=== PATIENT | female | born 1940 | race Caucasian/White ===

== ENCOUNTER 2019-12-30 14:51 | Outpatient (REF) | payer MEDICARE, SELFPAY ==
[2019-12-30 16:16] LABS: Estimated Average Glucose 100 mg/dL; Hemoglobin A1c % 5.1 %
[2019-12-30 16:36] LABS: Alanine Aminotransferase 18 U/L (0-31); Albumin Level 4.2 g/dL (3.5-5.0); Alkaline Phosphatase 69 U/L (39-117); Anion Gap 12 (12-20); Aspartate Amino Transferase 20 U/L (5-31); Bilirubin Total 0.5 mg/dL (0.0-1.0); Blood Urea Nitrogen 18 mg/dL (9-16); Calcium 9.3 mg/dL (8.4-10.2); Carbon Dioxide 26 mmol/L (22-29); Chloride 101 mmol/L (96-108); Estimated Glomerular Filt Rate > 60; Glucose Random 99 mg/dL (60-115); Potassium 4.4 mmol/l (3.3-5.1); Rheumatoid Factor < 15.0 IU/mL (<15.0); Sodium 135 mmol/L (135-145); Total Protein 7.3 g/dL (6.5-8.0)
[2019-12-30 17:42] LABS: Erythrocyte Sedimentation Rate 45 MM/HR (0-20)
[2020-01-02 18:02] LABS: Anti Nuclear Antibody Screen NEGATIVE (NEGATIVE)
[2020-01-03 08:19] LABS: ANA Additional Testing NOT INDICATED
== END 2019-12-30 14:52 | disposition home or self-care (01) ==
LOC: HO.LAB 14:51
PROVIDERS: PCP Internal Medicine; Visit Provider Internal Medicine
DX: R73.01 Impaired fasting glucose (principal); R70.0 Elevated erythrocyte sedimentation rate; J45.909 Unspecified asthma, uncomplicated; E78.00 Pure hypercholesterolemia, unspecified; E66.9 Obesity, unspecified; M17.9 Osteoarthritis of knee, unspecified
CPT/HCPCS: 36415; 80053; 83036; 85652; 86038; 86039; 86431

== ENCOUNTER 2020-09-04 13:19 | Outpatient (REF) | payer MEDICARE, SELFPAY ==
--- NOTE | ~2020-09-04 | MM_ITS ---
EXAMINATION: MM SCREENING DIGITAL BREAST TOMOSYNTHESIS, BILATERAL CLINICAL INFORMATION: Screening. Asymptomatic. The lifetime risk of breast cancer based on the Tyrer-Cuzick Model is 1.8%. COMPARISON: Mammography: February 14, 2019 and studies dating back to May 30, 2013 TECHNIQUE: Digital breast tomosynthesis is performed in both the craniocaudal and mediolateral oblique views along with computer-aided detection (CAD). Synthesized 2D images are generated from the tomosynthesis. Additional right breast exaggerated craniocaudal view performed. FINDINGS: The breasts are heterogeneously dense, which may obscure small masses (ACR BI-RADS breast composition Category c). There are no significant masses, abnormal calcifications, or other abnormalities. MM/MM tomosynthesis screening BI IMPRESSION: There are no significant changes from prior study. ASSESSMENT: BI-RADS 1: Negative RECOMMENDATION: Routine annual mammography screening. This patient's information was entered into a reminder system with a target due date for their next mammogram.
== END 2020-09-04 13:20 | disposition home or self-care (01) ==
LOC: HO.MAMMO 13:19
PROVIDERS: PCP Internal Medicine; Visit Provider Internal Medicine
DX: Z12.31 Encounter for screening mammogram for malignant neoplasm of breast (principal)
CPT/HCPCS: 77063; 77067

== ENCOUNTER 2020-12-26 10:25 | Outpatient (REF) | payer MEDICARE, SELFPAY ==
[2020-12-26 10:49] LABS: MANUAL DIFF FLAG NO
[2020-12-26 11:04] LABS: Basophils Absolute Auto 0.1 X10*3/uL (0.0-0.2); Basophils Percent Auto 1.3 % (0-2); Eosinophils Absolute Auto 0.5 X10*3/uL (0.0-0.4); Eosinophils Percent Auto 8.3 % (0-4); Hematocrit 39.7 % (37-47); Hemoglobin 13.2 g/dl (12.0-16.0); Imm Gran Abs Auto 0.02 X10*3/uL (0.00-0.03); Imm Gran Pct Auto 0.4 % (0.0-0.4); Lymphocytes Absolute Auto 1.7 X10*3/uL (1.2-4.9); Lymphocytes Percent Auto 30.1 % (20-40); Mean Corpuscular HGB Conc 33.2 g/dl (31.0-35.0); Mean Corpuscular Hemoglobin 30.6 pg (27.0-33.0); Mean Corpuscular Volume 91.9 fL (80-98); Mean Platelet Volume 9.3 fL (9.4-12.3); Monocytes Absolute Auto 0.6 X10*3/uL (0.1-1.2); Monocytes Percent Auto 11.1 % (2-11); Neutrophils Absolute Auto 2.7 X10*3/uL (2.0-8.3); Neutrophils Percent Auto 48.8 % (45-73); Platelet Count 311 X10*3/uL (160-400); Red Blood Count 4.32 X10*6/uL (4.20-5.50); Red Cell Distribution Width 12.8 % (11.0-16.0); White Blood Count 5.5 X10*3/uL (4.8-10.8)
[2020-12-26 11:31] LABS: Estimated Average Glucose 100 mg/dL; Hemoglobin A1c % 5.1 %
[2020-12-26 11:33] LABS: Alanine Aminotransferase 31 U/L (0-31); Albumin Level 4.3 g/dL (3.5-5.0); Alkaline Phosphatase 147 U/L (39-117); Anion Gap 13 (12-20); Aspartate Amino Transferase 26 U/L (5-31); Blood Urea Nitrogen 12 mg/dL (9-16); Calcium 9.6 mg/dL (8.4-10.2); Carbon Dioxide 26 mmol/L (22-29); Chloride 104 mmol/L (96-108); Cholesterol 216 mg/dL; Estimated Glomerular Filt Rate > 60; Glucose Random 96 mg/dL (60-115); HDL Cholesterol 63 mg/dL; LDL Cholesterol Calculated 138 mg/dl; Potassium 4.8 mmol/L (3.3-5.1); Sodium 138 mmol/L (135-145); Total Protein 7.2 g/dL (6.5-8.0); Triglycerides 75 mg/dL
[2020-12-26 11:48] LABS: Appearance Urine HAZY; Color Urine YELLOW; Glucose Urine UA NEG (NEG); Leukocyte Esterase Urine 1+ (NEG); Nitrite Urine POS (NEG); Urine Blood NEG (NEG); Urine Ketones NEG (NEG); Urine Protein NEG (NEG-TRACE)
[2020-12-26 11:56] LABS: Free T4 (Free Thyroxine) 1.03 ng/dL (0.71-1.85); Vitamin D 25-OH Total 43.5 ng/mL (>30)
[2020-12-26 11:57] LABS: Folate 18.8 ng/mL (> or = 4.0); Vitamin B12 791 pg/mL (200-900)
[2020-12-26 11:58] LABS: Bacteria Urine 2+ /LPF; RBC Urine 0 /HPF (0); Squamous Epithelial Cell Urine TRACE /LPF
== END 2020-12-26 10:26 | disposition home or self-care (01) ==
LOC: HO.LAB 10:25
PROVIDERS: PCP Internal Medicine; Visit Provider Internal Medicine
DX: R73.02 Impaired glucose tolerance (oral) (principal); E78.00 Pure hypercholesterolemia, unspecified; M85.80 Other specified disorders of bone density and structure, unspecified site
CPT/HCPCS: 36415; 80053; 80061; 81001; 82306; 82607; 82746; 83036; 84439; 84443; 85025

== ENCOUNTER 2021-01-11 13:52 | Outpatient (REF) | payer MEDICARE, SELFPAY ==
--- NOTE | ~2021-01-11 | MM_ITS ---
EXAMINATION: BONE DENSITOMETRY CLINICAL INDICATION: Osteopenia. COMPARISON: Previous BD dated 07/13/2018 and baseline BD dated 04/15/2007. TECHNIQUE: Using a [employer] DXA System (software version: 13.1) manufactured by [employer], dual-energy x-ray absorptiometry was performed of the lumbar spine and left hip. The images are of good technical quality. Summary results are attached. FINDINGS: AP SPINE L1-L4 (excluding L3): The data of L1-L4 has been changed to exclude the L3 vertebral body, because degenerative sclerosis at this level may cause overestimation of lumbar spine density. Current: BMD 1.070 g/cm2, Z-score 0.3, T-score -0.8, normal, 1.5% decrease from previous, 14.3% increase from baseline (<5% change is not significant). Prior: BMD 1.054 g/cm2. Baseline: BMD 0.936 g/cm2. LEFT FEMUR, NECK: Current: BMD 0.743 g/cm2, Z-score -0.4, T-score -2.1, osteopenia. Prior: BMD 0.748 g/cm2. Baseline: BMD 0.783 g/cm2. LEFT FEMUR, TOTAL: Current: BMD 0.739 g/cm2, Z-score -0.6, T-score -2.1, osteopenia, 0.4% increase from previous, 5.3% decrease from baseline (<5% change is not significant). Prior: BMD 0.736 g/cm2. Baseline: BMD 0.780 g/cm2. IDENTIFIED RISK FACTORS: Menopause, osteoporosis, height loss, hysterectomy, family history (parent hip fracture), bilateral oophorectomy. HISTORY OF FRACTURE: None listed. MEDICATIONS: Calcium, vitamin D. MM/XR DEXA axial skeleton IMPRESSION: 1. DIAGNOSIS: Osteopenia based on the lowest T-score value of -2.1 in the femur neck and total femur applying World Health Organization criteria. 2. 10-YEAR FRACTURE RISK PREDICTION, FRAX: Major osteoporotic fracture (clinical spine, forearm, hip or shoulder) 28.8%. Hip fracture 18.7%. 3. Treatment Recommendations: NOF guidelines recommend consideration for treatment in postmenopausal women and men age 50 and older presenting with the following: -A hip or vertebral (clinical or morphometric) fracture. -T-score less than or equal to -2.5 at the femoral neck or spine after appropriate evaluation to exclude secondary causes. -Low bone mass at the hip or spine and a 10-year fracture probability by FRAX of greater than or equal to 3% for hip fracture or greater than or equal to 20% for major osteoporotic fracture based on the [place] adapted WHO algorithm. 4. Other Recommendations: All treatment decisions require clinical judgment and consideration of individual patient factors, including patient preferences, comorbidities, previous drug use, risk factors not captured in the FRAX model (e.g. frailty, falls, vitamin D deficiency, increased bone turnover, interval significant decline in bone density) and possible under or overestimation of fracture risk by FRAX. Additional medical evaluation for secondary cause of low bone mineral density may be appropriate. FUTURE SCAN RECOMMENDATION: People with diagnosed cases of osteoporosis or at high risk for fracture should have regular bone mineral density tests. For patients eligible for Medicare, routine testing is allowed once every 2 years. The testing frequency can be increased to one year for patients who have rapidly progressing disease, those who are receiving or discontinuing medical therapy to restore bone mass, or have additional risk factors.
[2021-01-11 15:08] LABS: Alanine Aminotransferase 16 U/L (0-31); Albumin Level 4.4 g/dL (3.5-5.0); Alkaline Phosphatase 133 U/L (39-117); Anion Gap 13 (12-20); Aspartate Amino Transferase 21 U/L (5-31); Bilirubin Total 0.6 mg/dL (0.0-1.0); Blood Urea Nitrogen 16 mg/dL (9-16); Calcium 9.2 mg/dL (8.4-10.2); Carbon Dioxide 24 mmol/L (22-29); Chloride 101 mmol/L (96-108); Cholesterol 212 mg/dL; Estimated Glomerular Filt Rate 50; Gamma Glutamyl Transpeptidase 18 U/L (7-33); Glucose Random 76 mg/dL (60-115); HDL Cholesterol 67 mg/dL; LDL Cholesterol Calculated 123 mg/dl; Potassium 4.3 mmol/L (3.3-5.1); Sodium 134 mmol/L (135-145); Total Protein 7.4 g/dL (6.5-8.0); Triglycerides 114 mg/dL
[2021-01-11 15:18] LABS: Appearance Urine CLEAR; Color Urine YELLOW; Glucose Urine UA NEG (NEG); Leukocyte Esterase Urine 1+ (NEG); Nitrite Urine NEG (NEG); Urine Blood NEG (NEG); Urine Ketones NEG (NEG); Urine Protein NEG (NEG-TRACE)
[2021-01-11 15:57] LABS: RBC Urine 0 /HPF (0); Renal Epithelial Cells Urine 2+ /LPF; Squamous Epithelial Cell Urine 2+ /LPF
[2021-01-15 15:32] LABS: 5' Nucleotidase 3 U/L (0-10)
[2021-01-17 22:06] LABS: Alk.Phos Iso. Macrohepatic 0 % (<=0); Alk.Phos Isoenzymes Bone 52 % (28-66); Alk.Phos Isoenzymes Intest 0 % (1-24); Alk.Phos Isoenzymes Liver 48 % (25-69); Alk.Phos Isoenzymes Placental 0 % (<=0); Alk.Phos Isoenzymes Total 126 U/L (37-153)
== END 2021-01-11 13:53 | disposition home or self-care (01) ==
LOC: HO.MAMMO 13:52
PROVIDERS: PCP Internal Medicine; Visit Provider Internal Medicine
DX: Z13.820 Encounter for screening for osteoporosis (principal); Z78.0 Asymptomatic menopausal state; M85.80 Other specified disorders of bone density and structure, unspecified site; R73.02 Impaired glucose tolerance (oral); R74.8 Abnormal levels of other serum enzymes; E78.00 Pure hypercholesterolemia, unspecified
CPT/HCPCS: 36415; 77080; 80053; 80061; 81001; 82977; 83915; 84080

== ENCOUNTER 2021-08-21 13:51 | Outpatient (REF) | payer MEDICARE, SELFPAY ==
[2021-08-21 15:29] LABS: Appearance Urine CLEAR; Color Urine YELLOW; Glucose Urine UA NEG (NEG); Leukocyte Esterase Urine 2+ (NEG); Nitrite Urine POS (NEG); Specific Gravity - Urine 1.015 (1.005-1.025); Urine Blood NEG (NEG); Urine Ketones NEG (NEG); Urine Protein NEG (NEG-TRACE)
[2021-08-21 15:49] LABS: Bacteria Urine 3+ /LPF; Renal Epithelial Cells Urine TRACE /LPF
[2021-08-21 15:50] LABS: Squamous Epithelial Cell Urine 1+ /LPF
== END 2021-08-21 13:52 | disposition home or self-care (01) ==
LOC: HO.LAB 13:51
PROVIDERS: PCP Internal Medicine; Visit Provider Internal Medicine
DX: R35.0 Frequency of micturition (principal)
CPT/HCPCS: 81001; 81003

== ENCOUNTER 2021-11-25 14:42 | Outpatient (REF) | payer MEDICARE, SELFPAY ==
--- NOTE | ~2021-11-25 | XR_ITS ---
EXAMINATION: XR CERVICAL SPINE. XR HIP, RIGHT CLINICAL INFORMATION: Pain COMPARISON: None TECHNIQUE: 3 views of the cervical spine. AP and frog-lateral views of the right hip. FINDINGS: Cervical spine: Moderate degenerative disc disease at C4-C5 with minimal retrolisthesis, as well as C5-C6 and C6-C7. There is prominent facet arthropathy in the mid cervical spine, most severe on the left at C3-C4. No fracture. No prevertebral soft tissue swelling. Chronic ossifications superficial to the C6 spinous process, likely of the nuchal ligament. Right hip: No joint space narrowing. No fracture or focal osseous lesion. Mild enthesopathy. Vascular calcifications are noted. XR/XR cervical spine 3V IMPRESSION: Cervical spine: Moderate degenerative disc disease and moderate to severe facet arthropathy as detailed in the comments. No acute abnormality. Right hip: Unremarkable.
--- NOTE | ~2021-11-25 | XR_ITS ---
EXAMINATION: XR CERVICAL SPINE. XR HIP, RIGHT CLINICAL INFORMATION: Pain COMPARISON: None TECHNIQUE: 3 views of the cervical spine. AP and frog-lateral views of the right hip. FINDINGS: Cervical spine: Moderate degenerative disc disease at C4-C5 with minimal retrolisthesis, as well as C5-C6 and C6-C7. There is prominent facet arthropathy in the mid cervical spine, most severe on the left at C3-C4. No fracture. No prevertebral soft tissue swelling. Chronic ossifications superficial to the C6 spinous process, likely of the nuchal ligament. Right hip: No joint space narrowing. No fracture or focal osseous lesion. Mild enthesopathy. Vascular calcifications are noted. XR/XR hip RT min 2V IMPRESSION: Cervical spine: Moderate degenerative disc disease and moderate to severe facet arthropathy as detailed in the comments. No acute abnormality. Right hip: Unremarkable.
--- NOTE | ~2021-11-25 | MM_ITS ---
EXAMINATION: MM SCREENING DIGITAL BREAST TOMOSYNTHESIS, BILATERAL CLINICAL INFORMATION: Screening. Asymptomatic. The lifetime risk of breast cancer based on the Tyrer-Cuzick Model is 1%. COMPARISON: Mammography: 09/04/2020, 02/14/2019, 02/08/2018 TECHNIQUE: Digital breast tomosynthesis is performed in both the craniocaudal and mediolateral oblique views along with computer-aided detection (CAD). Synthesized 2D images are generated from the tomosynthesis. FINDINGS: There are scattered areas of fibroglandular density (ACR BI-RADS breast composition Category b). There are no significant masses, abnormal calcifications, or other abnormalities. Parenchymal pattern is similar to prior studies. No developing density or architectural abnormality. Again, there is a biopsy clip markers central mid right breast. Dermal lesion overlies mid right breast on tomography. There are also bilateral deodorant artifact overlying the high axilla. MM/MM tomosynthesis screening BI IMPRESSION: No mammographic evidence of malignancy. ASSESSMENT: BI-RADS 2: Benign RECOMMENDATION: Routine annual mammography screening. This patient's information was entered into a reminder system with a target due date for their next mammogram.
[2021-11-25 16:16] LABS: Appearance Urine Clear; Color Urine Yellow; Glucose Urine UA Negative (Negative); Leukocyte Esterase Urine Moderate (2+) (Negative); Nitrite Urine Negative (Negative); PH 5.5 (5.0-9.0); UMIC TRIGGER UACC YES; Urine Blood Negative (Negative); Urine Ketones Negative (Negative); Urine Protein Negative (Neg-Trace)
[2021-11-25 16:22] LABS: Bacteria Urine None Seen (None Seen); Hyaline Casts Urine 0-2 /LPF (0-2); RBC Urine 0-2 /HPF (0-2); UACC Culture Trigger YES
== END 2021-11-25 14:43 | disposition home or self-care (01) ==
LOC: HO.MAMMO 14:42
PROVIDERS: PCP Internal Medicine; Visit Provider Internal Medicine
DX: Z12.31 Encounter for screening mammogram for malignant neoplasm of breast (principal); M25.551 Pain in right hip; M54.2 Cervicalgia; R35.0 Frequency of micturition; E78.00 Pure hypercholesterolemia, unspecified
CPT/HCPCS: 72040; 73502; 77063; 77067; 81001; 81003; 87086

== ENCOUNTER 2021-12-31 10:26 | Outpatient (REF) | payer MEDICARE, SELFPAY ==
[2021-12-31 11:04] LABS: MANUAL DIFF FLAG NO
[2021-12-31 11:27] LABS: Basophils Absolute Auto 0.1 X10*3/uL (0.0-0.2); Basophils Percent Auto 1.4 % (0-2); Eosinophils Absolute Auto 0.2 X10*3/uL (0.0-0.4); Eosinophils Percent Auto 4.8 % (0-4); Hematocrit 40.7 % (37.0-47.0); Hemoglobin 13.2 g/dl (12.0-16.0); Imm Gran Abs Auto 0.02 X10*3/uL (0.00-0.03); Imm Gran Pct Auto 0.4 % (0.0-0.4); Lymphocytes Absolute Auto 1.5 X10*3/uL (1.2-4.9); Lymphocytes Percent Auto 29.4 % (20-40); Mean Corpuscular HGB Conc 32.4 g/dl (31.0-35.0); Mean Corpuscular Hemoglobin 30.4 pg (27.0-33.0); Mean Corpuscular Volume 93.8 fL (80.0-98.0); Mean Platelet Volume 10.1 fL (9.4-12.3); Monocytes Absolute Auto 0.6 X10*3/uL (0.1-1.2); Monocytes Percent Auto 11.5 % (2-11); Neutrophils Absolute Auto 2.6 x10*3/uL (2.0-8.3); Neutrophils Percent Auto 52.5 % (45-73); Platelet Count 278 X10*3/uL (160-400); Red Blood Count 4.34 X10*6/uL (4.20-5.50); Red Cell Distribution Width 13.1 % (11.0-16.0)
[2021-12-31 11:37] LABS: Estimated Average Glucose 103 mg/dL; Hemoglobin A1c % 5.2 %; Total Hemoglobin (HGBA1C) 3347.5132 umol/L
[2021-12-31 12:25] LABS: Free T4 (Free Thyroxine) 1.03 ng/dL (0.71-1.85); Vitamin D 25-OH Total 41.4 ng/mL (>30)
[2021-12-31 12:28] LABS: Alanine Aminotransferase 12 U/L (0-31); Albumin Level 4.2 g/dL (3.5-5.0); Alkaline Phosphatase 112 U/L (39-117); Anion Gap 13 (12-20); Aspartate Amino Transferase 17 U/L (5-31); Bilirubin Total 0.8 mg/dL (0.0-1.0); Blood Urea Nitrogen 20 mg/dL (9-16); Calcium 9.3 mg/dL (8.4-10.2); Carbon Dioxide 27 mmol/L (22-29); Chloride 103 mmol/L (96-108); Cholesterol 232 mg/dL; Estimated Glomerular Filt Rate > 60; Glucose Random 100 mg/dL (60-115); HDL Cholesterol 67 mg/dL; LDL Cholesterol Calculated 148 mg/dl; Potassium 4.3 mmol/L (3.3-5.1); Sodium 139 mmol/L (135-145); Triglycerides 85 mg/dL
[2021-12-31 12:49] LABS: Folate > 20.0 ng/mL (> or = 4.0); Vitamin B12 509 pg/mL (200-900)
[2021-12-31 12:54] LABS: Appearance Urine Clear; Color Urine Yellow; Glucose Urine UA Negative (Negative); Leukocyte Esterase Urine Negative (Negative); Nitrite Urine Negative (Negative); PH 6.5 (5.0-9.0); Urine Blood Negative (Negative); Urine Ketones Negative (Negative); Urine Protein Negative (Neg-Trace)
[2021-12-31 13:00] LABS: Bacteria Urine None Seen (None Seen); Hyaline Casts Urine 0-2 /LPF (0-2); RBC Urine 0-2 /HPF (0-2); Squamous Epithelial Cell Urine 0-2 /HPF (0-2); WBC Urine 0-5 /HPF (0-5)
== END 2021-12-31 10:27 | disposition home or self-care (01) ==
LOC: HO.LAB 10:26
PROVIDERS: PCP Internal Medicine; Visit Provider Internal Medicine
DX: E78.00 Pure hypercholesterolemia, unspecified (principal); R35.0 Frequency of micturition; R73.02 Impaired glucose tolerance (oral)
CPT/HCPCS: 36415; 80053; 80061; 81001; 81003; 82306; 82607; 82746; 83036; 84439; 84443; 85025

== ENCOUNTER → 2022-09-08 09:16 | Outpatient (BNV) | payer MEDICARE, SELFPAY | PROVIDERS: PCP Internal Medicine; Visit Provider Internal Medicine | DX: D47.2 Monoclonal gammopathy (principal) | CPT/HCPCS: 99203; 99214 ==

== ENCOUNTER → 2022-12-11 12:30 | Outpatient (BNV) | payer MEDICARE, SELFPAY | PROVIDERS: PCP Internal Medicine; Visit Provider Radiology Diagnostic Radiology | DX: Z12.31 Encounter for screening mammogram for malignant neoplasm of breast (principal) | CPT/HCPCS: 77063; 77067 ==

== ENCOUNTER 2022-12-11 12:46 | Outpatient (REF) | payer MEDICARE, SELFPAY ==
--- NOTE | ~2022-12-11 | MM_ITS ---
EXAMINATION: MM SCREENING DIGITAL BREAST TOMOSYNTHESIS, BILATERAL CLINICAL INFORMATION: Screening. Asymptomatic. COMPARISON: Mammography: This study is compared with prior exams dating back to 2018. TECHNIQUE: Digital breast tomosynthesis is performed in both the craniocaudal and mediolateral oblique views along with computer-aided detection (CAD). Synthesized 2D images are generated from the tomosynthesis. FINDINGS: The breasts are heterogeneously dense, which may obscure small masses (ACR BI-RADS breast composition Category c). There are no significant masses, abnormal calcifications, or other abnormalities. There is a tissue marker present in the right breast from prior benign percutaneous biopsy. There is a single, coarse, benign calcification also present in the right breast at its deep third. MM/MM tomosynthesis screening BI IMPRESSION: No mammographic evidence of malignancy. ASSESSMENT: BI-RADS BI-RADS 2 - Benign Findings RECOMMENDATION: Routine annual mammography screening. 1 year F/U This examination should not preclude the clinical evaluation of a suspicious palpable abnormality. This patient's information was entered into a reminder system with a target due date for their next mammogram.
== END 2022-12-11 12:47 | disposition home or self-care (01) ==
LOC: HO.MAMMO 12:46
PROVIDERS: PCP Internal Medicine; Visit Provider Internal Medicine
DX: Z12.31 Encounter for screening mammogram for malignant neoplasm of breast (principal)
CPT/HCPCS: 77063; 77067

== ENCOUNTER 2022-12-15 14:05 | Outpatient (REF) | payer MEDICARE, SELFPAY | END 2022-12-15 14:06 | disposition home or self-care (01) | LOC: HO.LAB 14:05 | PROVIDERS: PCP Internal Medicine; Visit Provider Internal Medicine | DX: E78.00 Pure hypercholesterolemia, unspecified (principal); R73.02 Impaired glucose tolerance (oral); M85.80 Other specified disorders of bone density and structure, unspecified site; E55.9 Vitamin D deficiency, unspecified | CPT/HCPCS: 36415; 80053; 80061; 82306; 82607; 82746; 83036; 84439; 84443; 85025 ==

== ENCOUNTER 2022-12-17 10:47 | Outpatient (AMB) | payer MEDICARE, SELFPAY ==
[2022-12-17 11:00] VITALS: BP 128/76; PULSE 71; O2SAT 98; BMI 34.5
--- NOTE | 2022-12-17 11:00 | A.OFFPC_ITS ---
Vital Signs 12/17/22 11:00 Height 5 ft 3 in Weight 88.451 kg BMI 34.5 BP 128/76 Blood Pressure Location Lt brachial Position Sitting Pulse 71 Pulse Source Pulse Oximeter Pulse Oximetry (%) 98 Oxygen Delivery Method Room Air Intake Visit Reasons: 6mth f/u Allergies penicillin V Allergy (Unknown, Verified 12/17/22 11:00) Unknown Medication List - Last Reconciled 12/17/22 by Darlene Magaña MD albuterol sulfate 90 mcg/actuation (ProAir HFA) 2 puffs inhalation Q6H PRN 90 days calcium carbonate-vitamin D3 600 mg-5 mcg (200 unit) (Calcium 600 + D(3)) 600 caps PO DAILY cetirizine (Zyrtec) 10 mg PO DAILY montelukast (Singulair) 10 mg PO BEDTIME 90 days multivitamin 1 tab PO DAILY turmeric root extract 500 mg PO DAILY Tobacco use date assessed: 07/31/22 Fall risk assessment: No Falls in past year Last assessed Fall Risk: 12/17/22 Dental Screening Dental Screen Date: 12/17/22 Did you have a dental visit in the last 12 months?: Yes Did you have a dental problem in the last 6 months where you did not have access to dental care?: No Was dental information given to patient?: Patient has dentist HPI 6mth f/u HPI Details 82-year-old obese female with impaired g lucose tolerance hypercholesterolemia asthma MGUS coming in for follow-up. Patient was last seen in July 2022. For the MGUS patient is seeing hematology oncology workup was recommended. This was in September 2019 [facility] Medical History (Updated 09/08/22 @ 11:29 by Blanca Wagner MD) Frequency of micturition Frequency of micturition Osteopenia Tubular adenoma of colon MGUS (monoclonal gammopathy of unknown significance) Peripheral vascular disease Knee osteoarthritis Impaired glucose tolerance Obesity (BMI 30-39.9) Hypercholesterolemia Asthma Surgical History (Updated 09/08/22 @ 09:29 by Blanca Wagner MD) History of sinus surgery S/P FINESSE-BSO Family History Father CVD (cardiovascular disease) Mother Stroke High cholesterol Maternal Aunt Ovarian cancer Pancreatic cancer Social History Housing: House Alcohol intake: current Alcohol intake frequency: a few times a month Patient Tobacco Use Status: Never used Tobacco e-Cigarette/Vaping Use: Never Used Second Hand Smoke Exposure: No Current occupational status: retired Cognitive needs: No Hearing needs: No Vision needs: Yes Questionnaire PHQ-9 Over the last 2 weeks, how often have you been bothered by any of the following problems? 1. Little interest or pleasure in doing things: not at all 2. Feeling down, depressed, or hopeless: not at all 3. Trouble falling or staying asleep, or sleeping too much: not at all 4. Feeling tired or having little energy: not at all 5. Poor appetite or overeating: not at all 6. Feeling bad about yourself - or that you are a failure or have let yourself or your family down: not at all 7. Trouble concentrating on things, such as reading the newspaper or watching television: not at all 8. Moving or speaking so slowly that other people could have noticed. Or the opposite - being so fidgety or restless that you have been moving around a lot more than usual: not at all 9. Thoughts that you would be better off or of hurting yourself in some way: not at all Total score: 0 Depression Screening Interpretation: Negative Depression Screening Done: Yes Source: Developed by Drs. Roberto Carlos Patel, Alejandro Padilla and colleagues, with an educational bogdan from [employer]. Thrive Questionnaire Date Thrive assessed: 07/31/22 AUDIT C Alcohol Use Questionnaire (AUDIT-C) 1. How often do you have a drink containing alcohol?: 2-4 times a month 2. How many drinks containing alcohol do you have on a typical day when you are drinking?: 1 or 2 3. How often do you have six or more drinks on one occasion?: Never Total Score: 2 MARY JO-7 AMB Questionnaire MARY JO-7 Date MARY JO - 7 assessed: 07/31/22 Source: Developed by Drs. Roberto Carlos Patel, Rosangela Alcantara, Alejandro Callejas and colleagues, with an educational bogdan from [employer]. Physical exam (Primary Care) Vital Signs: Last Vital Signs Pulse 71 12/17/22 11:00 BP 128/76 12/17/22 11:00 Pulse Ox 98 12/17/22 11:00 Oxygen Delivery Method Room Air 12/17/22 11:00 BMI result Body Mass Index 34.5 Tobacco/Smoking Status: Tobacco use Status Tobacco use date assessed 07/31/22 12/17/22 11:01 Patient Tobacco Use Status Never used Tobacco 12/17/22 11:01 e-Cigarette/Vaping Use Never Used 12/17/22 11:01 PHQ-9: PHQ-9 Score PHQ-9: Total score 0 12/17/22 12:07 Depression Screening Interpretation: Negative Thrive Assessment: Date of Thrive Assessment Date Thrive assessed 07/31/22 12/17/22 11:01 Const General: alert; No acute distress Eyes Conjunctivae: conjunctivae normal Resp Auscultation: clear to auscultation bilaterally Cardio Rate: regular rate Rhythm: regular rhythm GI Inspection: Yes normal to inspection Extrem General: Yes normal to inspection and No edema Office Procedures Flu Questionnaire Does the patient have a severe egg allergy?: No Does the patient have severe life threatening allergies?: No Does the patient have a fever or illness today?: No Has the patient ever had Guillain-[place] Syndrome?: No Has the patient ever had any past reaction to a flu shot?: No Immunizations flu vacc [id number] 6mos up(PF) 60 mcg(15 mcgx4)/0.5 mL IM syringe Performing Provider: Darlene Magaña MD Performing Location: [facility] Administered by: Snehal Peres CMA on 12/17/22 12:45 Dose Route Admin Location Dispensed Lot Number Expiration Date [facility] Rehabilitation Program Manager 0.5 mL IM Left Deltoid 0.5 mL [id number] 09/06/23 52701-488-47 [employer] VIS Given Date VIS Provided VIS Publication Date 12/17/22 Single Vaccine 20 Eligibility Eligibility Date Funding Source Not [facility] Eligible 12/17/22 Private Assessment and Plan Assessment & Plan (1) Hypercholesterolemia: Code(s): E78.00 - Pure hypercholesterolemia, unspecified Plan: Avoid fried foods, chicken skin, eggs, butter margarine, pastries and meat. Be it pork or beef they have a lot of cholesterol LDL goal of less than 130 and triglyceride of less than 150 (2) Asthma: Code(s): J45.909 - Unspecified asthma, uncomplicated Qualifiers: Asthma complication type: uncomplicated Asthma persistence: intermittent Asthma severity: mild Qualified Code(s): J45.20 - Mild intermittent asthma, uncomplicated Plan: Continue with inhaler as knee (3) Obesity (BMI 30-39.9): Code(s): E66.9 - Obesity, unspecified Plan: Diet and exercise (4) Impaired glucose tolerance: Code(s): R73.02 - Impaired glucose tolerance (oral) Plan: Decrease the amount of carbohydrate intake, pasta, bread, rice and potatoes are all sugar and that is aside from all the sweet stuff, remember that fruits are good but they are Sweet also. (5) MGUS (monoclonal gammopathy of unknown significance): Comment: Dr. Avelino MCRAE October 2011, IgM high October 2014, last blood work 09/2021 SPEP SFLC, UPEP Alk phos with fractionation Code(s): D47.2 - Monoclonal gammopathy Plan: Patient seeing hematology oncology and workup was recommended Orders: Orders XR DEXA axial skeleton Today M81.0 - Age-related osteoporosis without current pathological fracture, M85.80 - Other specified disorders of bone density and structure, unspecified site Influenza [id number] Immunization Today Z23 - Encounter for immunization Medications: Refilled montelukast (Singulair) 10 mg PO BEDTIME 90 tabs 3RF 90 days J45.20 - Mild intermittent asthma, uncomplicated Coding Level of Care Code Est Pt Level 4 (40696) Diagnoses Hypercholesterolemia E78.00 Mild intermittent asthma without complication J45.20 Asthma complication type: uncomplicated Asthma persistence: intermittent Asthma severity: mild Obesity (BMI 30-39.9) E66.9 Impaired glucose tolerance R73.02 MGUS (monoclonal gammopathy of unknown significance) D47.2
== END 2022-12-17 12:59 | disposition home or self-care (01) ==
PROVIDERS: Visit Provider Internal Medicine
DX: Z23 Encounter for immunization (principal); E78.00 Pure hypercholesterolemia, unspecified; J45.20 Mild intermittent asthma, uncomplicated; R73.02 Impaired glucose tolerance (oral); D47.2 Monoclonal gammopathy
CPT/HCPCS: 90471; 90686; 99214

== ENCOUNTER 2023-01-16 13:43 | Outpatient (REF) | payer MEDICARE, SELFPAY ==
--- NOTE | ~2023-01-16 | MM_ITS ---
EXAMINATION: BONE DENSITOMETRY CLINICAL INDICATION: Osteoporosis. COMPARISON: Previous BD dated 01/11/2021 and baseline BD dated 04/15/2007. TECHNIQUE: Using a [employer] DXA System (software version: 13.1) manufactured by [employer], dual-energy x-ray absorptiometry was performed of the lumbar spine and left hip. The images are of good technical quality. Summary results are attached. FINDINGS: LEFT FEMUR, NECK: Current: BMD 0.739 g/cm2, Z-score -0.3, T-score 2.1, osteopenia. Prior: BMD 0.743 g/cm2. Baseline: BMD 0.783 g/cm2. LEFT FEMUR, TOTAL: Current: BMD 0.737 g/cm2, Z-score -0.5, T-score -2.1, osteopenia, 0.3% decrease from previous, 5.5% decrease from baseline (<5% change is not significant). Prior: BMD 0.739 g/cm2. Baseline: BMD 0.780 g/cm2. AP SPINE L1-L3 (excluding L4): The data of L1-L4 has been changed to exclude the L4 vertebral body, because degenerative sclerosis at this level may cause overestimation of lumbar spine density. Current: BMD 1.029 g/cm2, Z-score 0.0, T-score -1.2, osteopenia, 9.3% decrease from previous, 0.7% increase from baseline (<5% change is not significant). Prior: BMD 1.134 g/cm2. Baseline: BMD 1.022 g/cm2. IDENTIFIED RISK FACTORS: Menopause, hysterectomy, family history (parent hip fracture), bilateral oophorectomy. HISTORY OF FRACTURE: None listed. MEDICATIONS: Calcium or multivitamin. Vitamin D. MM/XR DEXA axial skeleton IMPRESSION: 1. DIAGNOSIS: Osteopenia based on the lowest T-score value of -2.1 in the femur neck and total femur applying World Health Organization criteria. 2. 10-YEAR FRACTURE RISK PREDICTION, FRAX: Major osteoporotic fracture (clinical spine, forearm, hip or shoulder) 29.5%. Hip fracture 19.7%. 3. Treatment Recommendations: NOF guidelines recommend consideration for treatment in postmenopausal women and men age 50 and older presenting with the following: -A hip or vertebral (clinical or morphometric) fracture. -T-score less than or equal to -2.5 at the femoral neck or spine after appropriate evaluation to exclude secondary causes. -Low bone mass at the hip or spine and a 10-year fracture probability by FRAX of greater than or equal to 3% for hip fracture or greater than or equal to 20% for major osteoporotic fracture based on the [place] adapted WHO algorithm. 4. Other Recommendations: All treatment decisions require clinical judgment and consideration of individual patient factors, including patient preferences, comorbidities, previous drug use, risk factors not captured in the FRAX model (e.g. frailty, falls, vitamin D deficiency, increased bone turnover, interval significant decline in bone density) and possible under or overestimation of fracture risk by FRAX. Additional medical evaluation for secondary cause of low bone mineral density may be appropriate. FUTURE SCAN RECOMMENDATION: People with diagnosed cases of osteoporosis or at high risk for fracture should have regular bone mineral density tests. For patients eligible for Medicare, routine testing is allowed once every 2 years. The testing frequency can be increased to one year for patients who have rapidly progressing disease, those who are receiving or discontinuing medical therapy to restore bone mass, or have additional risk factors.
== END 2023-01-16 13:44 | disposition home or self-care (01) ==
LOC: HO.MAMMO 13:43
PROVIDERS: PCP Internal Medicine; Visit Provider Internal Medicine
DX: Z13.820 Encounter for screening for osteoporosis (principal); M81.0 Age-related osteoporosis without current pathological fracture; M85.80 Other specified disorders of bone density and structure, unspecified site; Z78.0 Asymptomatic menopausal state
CPT/HCPCS: 77080

== ENCOUNTER 2023-11-13 15:12 | Outpatient (AMB) | payer MEDICARE, SELFPAY ==
--- NOTE | 2023-11-13 15:21 | A.OFFPC_ITS ---
Vital Signs 11/13/23 15:24 Height 5 ft 3 in Weight 196 lb 6 oz BMI 34.8 BP 130/68 Blood Pressure Location Lt brachial Position Sitting Pulse 69 Pulse Source Pulse Oximeter Pulse Oximetry (%) 96 Oxygen Delivery Method Room Air Intake Visit Reasons: Ear Chek Intake Note: Patient is here to follow up on Ear Check. Complaint body aches. Transfer Worker Required: No [employer]: Present Accompanied by: Spouse Allergies penicillin V Allergy (Unknown, Verified 11/13/23 15:23) Unknown Tobacco use date assessed: 11/13/23 Fall risk assessment: No Falls in past year Last assessed Fall Risk: 11/13/23 Dental Screening Dental Screen Date: 11/13/23 Did you have a dental visit in the last 12 months?: Yes Did you have a dental problem in the last 6 months where you did not have access to dental care?: No Was dental information given to patient?: Patient has dentist HPI Ear Chek HPI Details 83-year-old obese female with asthma hyp ercholesterolemia impaired glucose tolerance and MGUS last seen in 12/26/2022. Patient is up to date with mammogram and bone density. PAtient feels having fibromylagia but discussedabout reasons. PAtent has impacted cerumen [facility] Medical History (Updated 11/13/23 @ 16:07 by Darlene Magaña MD) Frequency of micturition Frequency of micturition Osteopenia Tubular adenoma of colon MGUS (monoclonal gammopathy of unknown significance) Peripheral vascular disease Knee osteoarthritis Impaired glucose tolerance Obesity (BMI 30-39.9) Hypercholesterolemia Asthma Surgical History History of sinus surgery S/P FINESSE-BSO Family History Father CVD (cardiovascular disease) Mother Stroke High cholesterol Maternal Aunt Ovarian cancer Pancreatic cancer Social History Housing: House Alcohol intake: current Alcohol intake frequency: a few times a month Patient Tobacco Use Status: Never used Tobacco e-Cigarette/Vaping Use: Never Used Second Hand Smoke Exposure: No Current occupational status: retired Cognitive needs: No Hearing needs: No Vision needs: Yes Questionnaire PHQ-9 Over the last 2 weeks, how often have you been bothered by any of the following problems? 1. Little interest or pleasure in doing things: not at all 2. Feeling down, depressed, or hopeless: not at all 3. Trouble falling or staying asleep, or sleeping too much: not at all 4. Feeling tired or having little energy: not at all 5. Poor appetite or overeating: not at all 6. Feeling bad about yourself - or that you are a failure or have let yourself or your family down: not at all 7. Trouble concentrating on things, such as reading the newspaper or watching television: not at all 8. Moving or speaking so slowly that other people could have noticed. Or the opposite - being so fidgety or restless that you have been moving around a lot more than usual: not at all 9. Thoughts that you would be better off or of hurting yourself in some way: not at all Total score: 0 Depression Screening Interpretation: Negative Depression Screening Done: Yes Source: Developed by Drs. Roberto Carlos Patel, Rosangela Alcantara, Alejandro Callejas and colleagues, with an educational bogdan from [employer]. Thrive Questionnaire Date Thrive assessed: 11/13/23 I am a: Patient Within the past 12 months, did the food you bought not last and you didn't have the money to get more?: Never true Within the past 12 months, did you worry whether your food would run out before you got money to buy more?: Never true Do you have trouble paying for medicines?: No Do you have trouble getting transportation to medical appointments?: No Do you have trouble paying your heating and electricity bill?: No Do you have trouble taking care of your child, family member or friend?: No Do you have trouble with day-to-day activities such as bathing, preparing meals, shopping, managing finances, etc.?: No Are you currently unemployed and looking for a job?: No Are you interested in more education?: No Please select the resources that you would like help with: None Currently or been in a relationship where the following occur: No concerns reported THRIVE Score: 0 AUDIT C Alcohol Use Questionnaire (AUDIT-C) 1. How often do you have a drink containing alcohol?: 2-4 times a month 2. How many drinks containing alcohol do you have on a typical day when you are drinking?: 1 or 2 Total Score: 2 MARY JO-7 AMB Questionnaire MARY JO-7 Date MARY JO - 7 assessed: 11/13/23 Feeling nervous, anxious, or on edge: 0 = Not at all Not being able to stop or control worryin = Not at all Worrying too much about different things: 0 = Not at all Trouble relaxin = Not at all Being so restless that it is hard to sit still: 0 = Not at all Becoming easily annoyed or irritable: 0 = Not at all Feeling afraid as if something awful might happen: 0 = Not at all Total MARY JO-7 score (0-4 normal; 5-9 mild; 10-14 moderate; 15-21 severe): 0 Source: Developed by Drs. Roberto Carlos Patel, Rosangela Alcantara, Alejandro Callejas and colleagues, with an educational bogdan from [employer]. Physical exam (Primary Care) Vital Signs: Last Vital Signs Pulse 69 11/13/23 15:24 BP 130/68 11/13/23 15:24 Pulse Ox 96 11/13/23 15:24 Oxygen Delivery Method Room Air 11/13/23 15:24 BMI result Body Mass Index 34.8 Tobacco/Smoking Status: Tobacco use Status Tobacco use date assessed 11/13/23 11/13/23 15:33 Patient Tobacco Use Status Never used Tobacco 11/13/23 15:33 e-Cigarette/Vaping Use Never Used 11/13/23 15:33 PHQ-9: PHQ-9 Score PHQ-9: Total score 0 11/13/23 15:33 Depression Screening Interpretation: Negative Thrive Assessment: Date of Thrive Assessment Date Thrive assessed 11/13/23 11/13/23 15:33 Currently or been in a relationship where the following occur: No concerns reported Const General: alert; No acute distress Eyes Conjunctivae: conjunctivae normal Resp Auscultation: clear to auscultation bilaterally Cardio Rate: regular rate Rhythm: regular rhythm GI Inspection: Yes normal to inspection Extrem General: Yes normal to inspection and No edema Assessment and Plan Assessment & Plan (1) Obesity (BMI 30-39.9): Code(s): E66.9 - Obesity, unspecified Plan: Diet and exercise (2) Hypercholesterolemia: Code(s): E78.00 - Pure hypercholesterolemia, unspecified Plan: Avoid fried foods, chicken skin, eggs, butter margarine, pastries and meat. Be it pork or beef they have a lot of cholesterol LDL goal of less than 130 and triglyceride of less than 150 (3) Asthma: Code(s): J45.909 - Unspecified asthma, uncomplicated Qualifiers: Asthma severity: mild Asthma persistence: intermittent Asthma complication type: uncomplicated Qualified Code(s): J45.20 - Mild intermittent asthma, uncomplicated Plan: continue with albuterol as needed (4) Peripheral vascular disease: Code(s): I73.9 - Peripheral vascular disease, unspecified Plan: elevatedlegs and support stocking (5) Urge incontinence of urine: Code(s): N39.41 - Urge incontinence (6) Impacted cerumen of both ears: Code(s): H61.23 - Impacted cerumen, bilateral Plan: will need ear irrigation (7) Hip pain, right: Code(s): M25.551 - Pain in right hip Plan: xr requested (8) Knee pain, bilateral: Code(s): M25.561 - Pain in right knee; M25.562 - Pain in left knee Plan: xray requested Orders: Orders Complete Blood Count Auto Diff Today E78.00 - Pure hypercholesterolemia, unspecified Thyroid Stimulating Hormone Today E78.00 - Pure hypercholesterolemia, unspecified XR knee RT 2V Today M25.551 - Pain in right hip XR hip RT min 2V Today M25.551 - Pain in right hip Comprehensive Met. Panel Today E78.00 - Pure hypercholesterolemia, unspecified Free T4 (Free Thyroxine) Today E78.00 - Pure hypercholesterolemia, unspecified Lipid Panel Today E78.00 - Pure hypercholesterolemia, unspecified Vitamin B12 and Folate Today E78.00 - Pure hypercholesterolemia, unspecified Vitamin D 25-OH Total Today E78.00 - Pure hypercholesterolemia, unspecified Erythrocyte Sedimentation Rate Today M85.80 - Other specified disorders of bone density and structure, unspecified site C Reactive Protein Today M85.80 - Other specified disorders of bone density and structure, unspecified site XR knee LT 2V Today M25.561 - Pain in right knee, M25.562 - Pain in left knee Coding Level of Care Code Est Pt Level 4 (36235) Diagnoses Obesity (BMI 30-39.9) E66.9 Hypercholesterolemia E78.00 Mild intermittent asthma without complication J45.20 Asthma severity: mild Asthma persistence: intermittent Asthma complication type: uncomplicated Peripheral vascular disease I73.9 Urge incontinence of urine N39.41 Impacted cerumen of both ears H61.23 Hip pain, right M25.551 Knee pain, bilateral M25.561; M25.562
[2023-11-13 15:24] VITALS: BP 130/68; PULSE 69; O2SAT 96; BMI 34.8
== END 2023-11-13 16:37 | disposition home or self-care (01) ==
PROVIDERS: PCP Internal Medicine; Visit Provider Internal Medicine
DX: H61.23 Impacted cerumen, bilateral (principal); E78.00 Pure hypercholesterolemia, unspecified; J45.20 Mild intermittent asthma, uncomplicated; I73.9 Peripheral vascular disease, unspecified; N39.41 Urge incontinence; M25.551 Pain in right hip; M25.561 Pain in right knee; M25.562 Pain in left knee
CPT/HCPCS: 99214

== ENCOUNTER 2023-12-14 12:11 | Outpatient (REF) | payer MEDICARE, SELFPAY ==
--- NOTE | ~2023-12-14 | MM_ITS ---
EXAMINATION: MM SCREENING DIGITAL BREAST TOMOSYNTHESIS, BILATERAL CLINICAL INFORMATION: Screening. Asymptomatic. COMPARISON: Mammography: Comparison is made with available priors TECHNIQUE: Digital breast mammography with tomosynthesis is performed in both the craniocaudal and mediolateral oblique views along with computer-aided detection (CAD). FINDINGS: The breasts are heterogeneously dense, which may obscure small masses (ACR BI-RADS breast composition Category c). Right marker clips. There are no significant masses, abnormal calcifications, or other abnormalities. MM/MM tomosynthesis screening BI IMPRESSION: No mammographic evidence of malignancy. ASSESSMENT: BI-RADS BI-RADS 2 - Benign Findings RECOMMENDATION: Routine annual mammography screening. 1 year F/U This examination should not preclude the clinical evaluation of a suspicious palpable abnormality. This patient's information was entered into a reminder system with a target due date for their next mammogram. Electronically signed by: Michell Mendez DO 12/25/2023 09:51 AM EDT
== END 2023-12-14 12:12 | disposition home or self-care (01) ==
LOC: HO.MAMMO 12:11
PROVIDERS: Visit Provider Internal Medicine
DX: Z12.31 Encounter for screening mammogram for malignant neoplasm of breast (principal)
CPT/HCPCS: 77063; 77067

== ENCOUNTER → 2023-12-14 12:15 | Outpatient (BNV) | payer MEDICARE, SELFPAY | PROVIDERS: Visit Provider Internal Medicine | DX: Z12.31 Encounter for screening mammogram for malignant neoplasm of breast (principal) | CPT/HCPCS: 77063; 77067 ==

== ENCOUNTER 2023-12-18 11:10 | Outpatient (REF) | payer MEDICARE, SELFPAY ==
[2023-12-18 11:38] LABS: MANUAL DIFF FLAG NO
[2023-12-18 12:09] LABS: Basophils Absolute Auto 0.1 X10*3/uL (0.0-0.2); Basophils Percent Auto 1.4 % (0-2); Eosinophils Absolute Auto 0.3 X10*3/uL (0.0-0.4); Eosinophils Percent Auto 6.9 % (0-4); Hematocrit 40.2 % (37.0-47.0); Hemoglobin 13.5 g/dl (12.0-16.0); Imm Gran Abs Auto 0.01 X10*3/uL (0.00-0.03); Imm Gran Pct Auto 0.2 % (0.0-0.4); Lymphocytes Absolute Auto 1.8 X10*3/uL (1.2-4.9); Lymphocytes Percent Auto 36.1 % (20-40); Mean Corpuscular HGB Conc 33.6 g/dl (31.0-35.0); Mean Corpuscular Hemoglobin 31.2 pg (27.0-33.0); Mean Corpuscular Volume 92.8 fL (80.0-98.0); Mean Platelet Volume 9.7 fL (9.4-12.3); Monocytes Absolute Auto 0.6 X10*3/uL (0.1-1.2); Monocytes Percent Auto 11.5 % (2-11); Neutrophils Absolute Auto 2.2 x10*3/uL (2.0-8.3); Neutrophils Percent Auto 43.9 % (45-73); Platelet Count 258 X10*3/uL (160-400); Red Blood Count 4.33 X10*6/uL (4.20-5.50); Red Cell Distribution Width 13.2 % (11.0-16.0)
[2023-12-18 12:50] LABS: Erythrocyte Sedimentation Rate 36 MM/HR (0-20)
[2023-12-18 13:00] LABS: Alanine Aminotransferase 14 U/L (0-31); Albumin Level 4.2 g/dL (3.5-5.0); Alkaline Phosphatase 153 U/L (39-117); Anion Gap 9 (12-20); Aspartate Amino Transferase 20 U/L (5-31); Bilirubin Total 0.6 mg/dL (0.0-1.0); Blood Urea Nitrogen 20 mg/dL (9-16); C Reactive Protein 0.32 mg/dL (< or = 0.50); Calcium 9.8 mg/dL (8.4-10.2); Carbon Dioxide 29 mmol/L (22-29); Chloride 105 mmol/L (96-108); Cholesterol 235 mg/dL (<200); Estimated Glomerular Filt Rate > 60; Glucose Random 100 mg/dL (60-115); HDL Cholesterol 70 mg/dL (>40); LDL Cholesterol Calculated 150 mg/dL (<100); Potassium 4.4 mmol/L (3.3-5.1); Sodium 139 mmol/L (135-145); Total Protein 7.6 g/dL (6.5-8.0); Triglycerides 76 mg/dL (<150)
[2023-12-18 13:19] LABS: Free T4 (Free Thyroxine) 1.03 ng/dL (0.71-1.85); Thyroid Stimulating Hormone 1.66 uIU/mL (0.32-4.0); Vitamin D 25-OH Total 52.6 ng/mL (>30)
[2023-12-18 13:31] LABS: Folate 14.4 ng/mL (> or = 4.0); Vitamin B12 581 pg/mL (200-900)
== END 2023-12-18 11:11 | disposition home or self-care (01) ==
LOC: HO.LAB 11:10
PROVIDERS: PCP Internal Medicine; Visit Provider Internal Medicine
DX: E78.00 Pure hypercholesterolemia, unspecified (principal); M85.80 Other specified disorders of bone density and structure, unspecified site
CPT/HCPCS: 36415; 80053; 80061; 82306; 82607; 82746; 84439; 84443; 85025; 85652; 86140

== ENCOUNTER 2024-01-26 14:29 | Outpatient (REF) | payer MEDICARE, SELFPAY | END 2024-01-26 14:30 | disposition home or self-care (01) | LOC: HO.XRAY 14:29 | PROVIDERS: PCP Internal Medicine; Visit Provider Internal Medicine | DX: Z00.00 Encounter for general adult medical examination without abnormal findings (principal); Z23 Encounter for immunization; N32.81 Overactive bladder; D47.2 Monoclonal gammopathy; M85.80 Other specified disorders of bone density and structure, unspecified site; I73.9 Peripheral vascular disease, unspecified; R73.02 Impaired glucose tolerance (oral); E66.9 Obesity, unspecified; E78.00 Pure hypercholesterolemia, unspecified; J45.20 Mild intermittent asthma, uncomplicated; M25.551 Pain in right hip; M25.561 Pain in right knee; M25.562 Pain in left knee | CPT/HCPCS: 73502; 73560; 90471; 90714; 96127; 99397 ==

== ENCOUNTER 2024-01-26 15:16 | Outpatient (AMB) | payer MEDICARE, SELFPAY ==
[2024-01-26 15:18] VITALS: BP 136/72; PULSE 81; O2SAT 97; BMI 35.2
--- NOTE | 2024-01-26 15:18 | MHC.PC.OV ---
Vital Signs 01/26/24 15:18 Height 5 ft 2.6 in Weight 196 lb BMI 35.2 BP 136/72 Blood Pressure Location Lt brachial Position Sitting Pulse 81 Pulse Source Pulse Oximeter Pulse Oximetry (%) 97 Oxygen Delivery Method Room Air Intake Visit Reasons: annual exam Intake Note: Patient is here today for a physical. Inspector Insulation Required: No Allergies penicillin V Allergy (Unknown, Verified 01/26/24 15:47) Unknown Medication List - Last Reconciled 01/26/24 by Sushila Saldana PA-C albuterol sulfate 90 mcg/actuation (ProAir HFA) 2 puffs inhalation Q6H PRN 90 days calcium carbonate-vitamin D3 600 mg-5 mcg (200 unit) (Calcium 600 + D(3)) 600 caps PO DAILY cetirizine (Zyrtec) 10 mg PO DAILY montelukast (Singulair) 10 mg PO BEDTIME 90 days multivitamin 1 tab PO DAILY turmeric root extract 500 mg PO DAILY Tobacco use date assessed: 01/26/24 Fall risk assessment: No Falls in past year Last assessed Fall Risk: 01/26/24 Dental Screening Dental Screen Date: 01/26/24 Did you have a dental visit in the last 12 months?: No Did you have a dental problem in the last 6 months where you did not have access to dental care?: No Was dental information given to patient?: Patient has dentist HPI annual exam HPI Details 83-year-old obese female with asthma hypercholesterolemia impaired glucose tolerance and MGUS last seen in 11/13/2023 coming in for annual exam.? Patient completed mammogram 12/25/2023 follow up in 1 year. Patient had hip x-ray done today for right hip pain and has not been read yet. She is moving to [place] early next year and is looking to establish care there and we will have an eye doctor there as well for her decreased vision. [facility] Medical History Frequency of micturition Frequency of micturition Osteopenia Tubular adenoma of colon MGUS (monoclonal gammopathy of unknown significance) Peripheral vascular disease Knee osteoarthritis Impaired glucose tolerance Obesity (BMI 30-39.9) Hypercholesterolemia Asthma Surgical History History of sinus surgery S/P FINESSE-BSO Family History Father CVD (cardiovascular disease) Mother Stroke High cholesterol Maternal Aunt Ovarian cancer Pancreatic cancer Social History Housing: House Alcohol intake: current Alcohol intake frequency: a few times a month Patient Tobacco Use Status: Never used Tobacco e-Cigarette/Vaping Use: Never Used Second Hand Smoke Exposure: No Current occupational status: retired Cognitive needs: No Hearing needs: No Vision needs: Yes Questionnaire PHQ-9 Over the last 2 weeks, how often have you been bothered by any of the following problems? 1. Little interest or pleasure in doing things: not at all 2. Feeling down, depressed, or hopeless: not at all 3. Trouble falling or staying asleep, or sleeping too much: not at all 4. Feeling tired or having little energy: not at all 5. Poor appetite or overeating: not at all 6. Feeling bad about yourself - or that you are a failure or have let yourself or your family down: not at all 7. Trouble concentrating on things, such as reading the newspaper or watching television: not at all 8. Moving or speaking so slowly that other people could have noticed. Or the opposite - being so fidgety or restless that you have been moving around a lot more than usual: not at all 9. Thoughts that you would be better off or of hurting yourself in some way: not at all Total score: 0 Depression Screening Interpretation: Negative Depression Screening Done: Yes 96913 - PHQ-9 Billing: Yes Source: Developed by Drs. Roberto Carlos Patel, Rosangela Alcantara, Alejandro Callejas and colleagues, with an educational bogdan from [employer]. Thrive Questionnaire Date Thrive assessed: 11/13/23 I am a: Patient What is your living situation today?: I have a steady place to live Within the past 12 months, did the food you bought not last and you didn't have the money to get more?: Never true Within the past 12 months, did you worry whether your food would run out before you got money to buy more?: Never true Do you have trouble paying for medicines?: No Do you have trouble getting transportation to medical appointments?: No Do you have trouble paying your heating and electricity bill?: No Do you have trouble taking care of your child, family member or friend?: No Do you have trouble with day-to-day activities such as bathing, preparing meals, shopping, managing finances, etc.?: No Are you currently unemployed and looking for a job?: No Are you interested in more education?: No Please select the resources that you would like help with: None Currently or been in a relationship where the following occur: No concerns reported THRIVE Score: 0 AUDIT C Alcohol Use Questionnaire (AUDIT-C) 1. How often do you have a drink containing alcohol?: 2-3 times a week 2. How many drinks containing alcohol do you have on a typical day when you are drinking?: 1 or 2 3. How often do you have six or more drinks on one occasion?: Never Total Score: 3 MARY JO-7 AMB Questionnaire MARY JO-7 Date MARY JO - 7 assessed: 01/26/24 Feeling nervous, anxious, or on edge: 0 = Not at all Not being able to stop or control worryin = Not at all Worrying too much about different things: 0 = Not at all Trouble relaxin = Not at all Being so restless that it is hard to sit still: 0 = Not at all Becoming easily annoyed or irritable: 0 = Not at all Feeling afraid as if something awful might happen: 0 = Not at all Total MARY JO-7 score (0-4 normal; 5-9 mild; 10-14 moderate; 15-21 severe): 0 Source: Developed by Drs. Roberto Carlos Patel, Rosangela Alcantara, Alejandro Callejas and colleagues, with an educational bogdan from [employer]. MARY JO-7 Assessment Billing MARY JO-7 Assessment Tool: MARY JO-7 Assessment 21504 Review of Systems Const Denies body aches, Denies fatigue, Denies fever(s), Denies frequent falls, Denies headache(s) and Denies weakness Eyes Reports no additional complaints and Denies change in vision ENT Details: itchy ears and wax buildup. post nasal drip Denies dysphagia, Denies dizziness, Denies facial pain, Denies headache(s), Denies nasal congestion and Denies odynophagia Card Denies chest pain, Denies syncope, Denies irregular heart rhythm, Denies leg edema, Denies lightheadedness and Denies dyspnea Resp Denies cough and Denies dyspnea GI Denies abdominal pain, Denies constipation, Denies dysphagia, Denies dyspepsia, Denies diarrhea, Denies nausea, Denies odynophagia and Denies vomiting Denies urinary frequency, Denies dysuria, Denies urinary hesitancy and Denies urinary urgency Musc Details: right hip pain Denies back pain and Denies myalgias Skin/Breast Reports system reviewed and no additional complaints, except as documented Neuro Denies dizziness, Denies syncope, Denies frequent falls, Denies headache(s) and Denies weakness Psych Reports no additional complaints Endo Denies fatigue Physical exam (Primary Care) Vital Signs: Last Vital Signs Pulse 81 01/26/24 15:18 BP 136/72 01/26/24 15:18 Pulse Ox 97 01/26/24 15:18 Oxygen Delivery Method Room Air 01/26/24 15:18 BMI result Body Mass Index 35.2 Tobacco/Smoking Status: Tobacco use Status Tobacco use date assessed 01/26/24 01/26/24 15:38 Patient Tobacco Use Status Never used Tobacco 01/26/24 15:20 e-Cigarette/Vaping Use Never Used 01/26/24 15:20 PHQ-9: PHQ-9 Score PHQ-9: Total score 0 01/26/24 16:11 Depression Screening Interpretation: Negative Thrive Assessment: Date of Thrive Assessment Date Thrive assessed 11/13/23 01/26/24 15:20 Currently or been in a relationship where the following occur: No concerns reported Const General: cooperative, healthy appearing, comfortable and no acute distress Orientation/consciousness: patient oriented x3 HENMT Other: Bilateral cerumen impaction Head: Yes normocephalic Ears: hearing grossly normal bilaterally, external ears normal, TM's normal bilaterally and EAC's normal General nose exam: Normal external nose present Face and sinus: Yes normal facial exam and Yes sinuses nontender Mouth: Normal oral and palatal mucosa present and tongue normal Throat: Yes posterior oropharynx normal Eyes General: appearance normal, both eyes and all related structures Conjunctivae: conjunctivae normal Pupils: Equal, round and reactive pupils present EOM: EOMs intact bilaterally and No Nystagmus present Neck Neck: Yes normal visual inspection, Yes full ROM and Yes no lymphadenopathy Chest Chest palpation & inspection: normal inspection of the chest Resp Effort & Inspection: normal respiratory effort Auscultation: clear to auscultation bilaterally, no crackles, no rales, no rhonchi, no wheezes and breath sounds present Cardio Rate: regular rate Rhythm: regular rhythm Peripheral pulses: radial pulses present and dorsalis pedis present GI Inspection: Yes normal to inspection and No Abdominal wall edema Palpation (GI): Soft to palpation, not firm and nontender Auscultation: normal bowel sounds Rectal Exam - Female: deferred General: Yes no CVA tenderness Back/Spine/Pelvis Back: no CVA tenderness Skin General skin exam: no rashes or lesions noted Neuro General: patient oriented x3 Cranial nerves: Yes Equal, round and reactive pupils present, Yes Midline tongue present, Yes Ability to bilaterally elevate shoulders present and No Nystagmus present Gait exam (Neuro): Normal gait present Extrem General: Yes normal to inspection, Yes full ROM, No no pedal edema and No edema Psych Speech and movement: Normal speech and movement present Affect: normal affect Insight: Good insight present (Psych) Judgement: Good judgement present (Psych) Immunizations tetanus-diphtheria toxoids-Td 2 Lf unit-2 Lf unit/0.5 mL IM suspension Performing Provider: Sushila Saldana PA-C [facility] Administered by: GREGORIA Berrios on 01/26/24 16:13 Dose Route Admin Location Dispensed Lot Number Expiration Date [facility] Saddle Stitch Operator 0.5 mL IM Left Deltoid 0.5 mL [id number] 04/18/24 [address]-2 [employer] VIS Given Date VIS Provided VIS Publication Date 01/26/24 Single Vaccine 20 Eligibility Eligibility Date Funding Source Not [facility] Eligible 01/26/24 State funds Coding Level of Care Code Est Pt Prev Care >65y(16169) Diagnoses Overactive bladder N32.81 MGUS (monoclonal gammopathy of unknown significance) D47.2 Osteopenia M85.80 Peripheral vascular disease I73.9 Impaired glucose tolerance R73.02 Obesity (BMI 30-39.9) E66.9 Hypercholesterolemia E78.00 Mild intermittent asthma without complication J45.20 Asthma complication type: uncomplicated Asthma persistence: intermittent Asthma severity: mild Annual physical exam Z00.00 Additional Codes MARY JO-7 Assessment Billing - MARY JO-7 Assessment Tool: MARY JO-7 Assessment 44549 ([id number]) PHQ-9 - 15897 - PHQ-9 Billing: Yes ([id number]) Assessment & Plan Assessment & Plan (1) Overactive bladder: Code(s): N32.81 - Overactive bladder Category: Medical Plan: Not currently on medical management. Doing well. (2) MGUS (monoclonal gammopathy of unknown significance): Comment: Dr. Avelino MCRAE October 2011, IgM high October 2014, last blood work 09/2021 SPEP SFLC, UPEP Alk phos with fractionation Code(s): D47.2 - Monoclonal gammopathy Category: Medical Plan: Patient was seeing hematology but has not been seen in one year, advised to follow up with Dr. Wagner. We will continue to monitor with blood work. (3) Osteopenia: Comment: July 2018, 01/2021 Code(s): M85.80 - Other specified disorders of bone density and structure, unspecified site Category: Medical Plan: Bone density done 2022 continue on calcium with vitamin-D supplementation (4) Peripheral vascular disease: Code(s): I73.9 - Peripheral vascular disease, unspecified Category: Medical Plan: Advised compression stockings and leg elevation as needed. (5) Impaired glucose tolerance: Code(s): R73.02 - Impaired glucose tolerance (oral) Category: Medical Plan: Decrease the amount of carbohydrates such as pasta, bread, rice, and potatoes and limit the amount of sweets. Although fruits are generally healthy they should be eaten in moderation as they are still high in sugar. (6) Obesity (BMI 30-39.9): Code(s): E66.9 - Obesity, unspecified Category: Medical Plan: Healthy diet and regular exercise is encouraged. (7) Hypercholesterolemia: Code(s): E78.00 - Pure hypercholesterolemia, unspecified Category: Medical Plan: Avoid foods that are high in cholesterol such as red meat, fried foods, eggs and baked goods. Triglyceride goal of less than 150 and LDL goal of less than 100. Not currently on medical management. Elevated cholesterol labs declining medication at this time. (8) Asthma: Code(s): J45.909 - Unspecified asthma, uncomplicated Category: Medical Qualifiers: Asthma complication type: uncomplicated Asthma persistence: intermittent Asthma severity: mild Qualified Code(s): J45.20 - Mild intermittent asthma, uncomplicated Plan: Asthma currently controlled on present medications. Continue on albuterol as needed. Avoid triggers such as allergies. (9) Annual physical exam: Code(s): Z00.00 - Encounter for general adult medical examination without abnormal findings Category: Medical Plan: Patient is up-to-date on all recommended routine screenings and vaccinations for her age. Blood work is updated. Td updated today. Plan This note was constructed using voice recognition software. While every effort has been made to ensure accuracy and envelope sealer, still areas may have been included sometimes these areas may affect the content or meeting of the given symptoms. Total time spent caring for the patient today was 30 minutes. This includes time spent before the visit reviewing the chart, time spent during the visit, and time spent after the visit and documentation. Orders: Orders Td State Immunization Today Z23 - Encounter for immunization Medications: Refilled montelukast (Singulair) 10 mg PO BEDTIME 90 days 90 tabs 3RF J45.20 - Mild intermittent asthma, uncomplicated
== END 2024-01-26 16:22 | disposition home or self-care (01) ==
PROVIDERS: PCP Internal Medicine
DX: Z00.00 Encounter for general adult medical examination without abnormal findings (principal); I73.9 Peripheral vascular disease, unspecified; E66.9 Obesity, unspecified; Z68.35 Body mass index [BMI] 35.0-35.9, adult; N32.81 Overactive bladder; D47.2 Monoclonal gammopathy; M85.80 Other specified disorders of bone density and structure, unspecified site; R73.02 Impaired glucose tolerance (oral); E78.00 Pure hypercholesterolemia, unspecified; J45.20 Mild intermittent asthma, uncomplicated; Z23 Encounter for immunization

== ENCOUNTER 2024-02-12 14:28 | Outpatient (AMB) | payer MEDICARE, SELFPAY ==
--- NOTE | 2024-02-12 14:48 | A.OFFPC_ITS ---
Vital Signs 02/12/24 14:49 Height 5 ft 2.6 in Weight 195 lb BMI 35.0 BP 146/76 H Blood Pressure Location Lt brachial Position Sitting Pulse 86 Pulse Source Pulse Oximeter Pulse Oximetry (%) 97 Oxygen Delivery Method Room Air Intake Visit Reasons: ear cleaning - pt convenience Nursing Informatics Clinical Analyst Required: No Accompanied by: Self / Same As Patient Allergies penicillin V Allergy (Unknown, Verified 02/12/24 14:49) Unknown Tobacco use date assessed: 01/26/24 Dental Screening Dental Screen Date: 01/26/24 HPI ear cleaning - pt convenience HPI Details 83-year-old female with past medical his tory of asthma, hypercholesterolemia, impaired glucose tolerance and MGUS last seen 01/26/2024 coming in for bilateral ear cleaning. Complains of bilateral ear clogged sensation. [facility] Medical History Frequency of micturition Frequency of micturition Osteopenia Tubular adenoma of colon MGUS (monoclonal gammopathy of unknown significance) Peripheral vascular disease Knee osteoarthritis Impaired glucose tolerance Obesity (BMI 30-39.9) Hypercholesterolemia Asthma Surgical History History of sinus surgery S/P FINESSE-BSO Family History Father CVD (cardiovascular disease) Mother Stroke High cholesterol Maternal Aunt Ovarian cancer Pancreatic cancer Social History Housing: House Alcohol intake: current Alcohol intake frequency: a few times a month Patient Tobacco Use Status: Never used Tobacco e-Cigarette/Vaping Use: Never Used Second Hand Smoke Exposure: No Current occupational status: retired Cognitive needs: No Hearing needs: No Vision needs: Yes Questionnaire Thrive Questionnaire Date Thrive assessed: 01/26/24 I am a: Patient What is your living situation today?: I have a steady place to live Within the past 12 months, did the food you bought not last and you didn't have the money to get more?: Never true Within the past 12 months, did you worry whether your food would run out before you got money to buy more?: Never true Do you have trouble paying for medicines?: No Do you have trouble getting transportation to medical appointments?: No Do you have trouble paying your heating and electricity bill?: No Do you have trouble taking care of your child, family member or friend?: No Do you have trouble with day-to-day activities such as bathing, preparing meals, shopping, managing finances, etc.?: No Are you currently unemployed and looking for a job?: No Are you interested in more education?: No Please select the resources that you would like help with: None Currently or been in a relationship where the following occur: No concerns reported THRIVE Score: 0 MARY JO-7 AMB Questionnaire MARY JO-7 Date MARY JO - 7 assessed: 01/26/24 Source: Developed by Drs. Roberto Carlos Patel, Rosangela Alcantara, Alejandro Callejas and colleagues, with an educational bogdan from [employer]. Review of Systems Const Denies body aches, Denies chills, Denies fever(s), Denies headache(s) and Denies poor appetite ENT Denies dizziness and Denies headache(s) Card Denies chest pain and Denies dyspnea Resp Denies cough and Denies dyspnea GI Denies abdominal pain Skin/Breast Reports system reviewed and no additional complaints, except as documented Neuro Denies dizziness and Denies headache(s) Psych Reports no additional complaints Physical exam (Primary Care) Vital Signs: Last Vital Signs Pulse 86 02/12/24 14:49 BP 146/76 H 02/12/24 14:49 Pulse Ox 97 02/12/24 14:49 Oxygen Delivery Method Room Air 02/12/24 14:49 BMI result Body Mass Index 35.0 Tobacco/Smoking Status: Tobacco use Status Tobacco use date assessed 01/26/24 02/12/24 14:49 Patient Tobacco Use Status Never used Tobacco 02/12/24 14:49 e-Cigarette/Vaping Use Never Used 02/12/24 14:49 Thrive Assessment: Date of Thrive Assessment Date Thrive assessed 01/26/24 02/12/24 14:49 Currently or been in a relationship where the following occur: No concerns reported Const General: cooperative, healthy appearing, comfortable and no acute distress Orientation/consciousness: patient oriented x3 HENMT Head: Yes normocephalic Ears: hearing grossly normal bilaterally and Abnormal EAC present cerumen impaction bilateral General nose exam: Normal external nose present Eyes General: appearance normal, both eyes and all related structures Conjunctivae: conjunctivae normal Neck Neck: Yes full ROM and Yes no lymphadenopathy Resp Effort & Inspection: normal respiratory effort Auscultation: clear to auscultation bilaterally, no crackles, no rales, no rhonchi and no wheezes Cardio Rate: regular rate Rhythm: regular rhythm Skin General skin exam: no rashes or lesions noted Neuro General: patient oriented x3 Gait exam (Neuro): Normal gait present Extrem General: Yes normal to inspection, Yes full ROM and No edema Psych Affect: normal affect Attitude: cooperative Insight: Good insight present (Psych) Judgement: Good judgement present (Psych) Office Procedures Cerumen Removal From which ear canal was the cerumen removed: bilateral Removal: irrigation and cerumen loop/spoon Notes: patient tolerated procedure well and ear canal clear (Right only) 38993-[id number] Irrigation/Lavage Coding Level of Care Code Est Pt Level 3 (32581) Diagnoses Impacted cerumen of both ears H61.23 CPT Codes Office Procedure - CPT: 20095-Afm Irrigation/Lavage ([id number]) Assessment & Plan Assessment & Plan (1) Impacted cerumen of both ears: Code(s): H61.23 - Impacted cerumen, bilateral Category: Medical Plan: Right ear was irrigated and cerumen was removed successfully patient tolerated the side well. While irrigating the left ear patient complains of dizziness and lightheadedness and irrigation was promptly stopped. Patient's symptoms improved after a few minutes and was able to walk without dizziness or unsteadiness. Advised patient to use Debrox drops in the left ear and follow up as needed for ear irrigation. Plan This note was constructed using voice recognition software. While every effort has been made to ensure accuracy and functional skills tutor, still areas may have been included sometimes these areas may affect the content or meeting of the given symptoms. Total time spent caring for the patient today was twenty minutes. This includes time spent before the visit reviewing the chart, time spent during the visit, and time spent after the visit and documentation.
[2024-02-12 14:49] VITALS: BP 146/76; PULSE 86; O2SAT 97; BMI 35.0
== END 2024-02-12 15:40 | disposition home or self-care (01) ==
PROVIDERS: PCP Internal Medicine
DX: H61.23 Impacted cerumen, bilateral (principal)

== ENCOUNTER → 2024-02-12 14:28 | Outpatient (BNVA) | payer MEDICARE, SELFPAY | PROVIDERS: PCP Internal Medicine | DX: H61.23 Impacted cerumen, bilateral (principal) | CPT/HCPCS: 69210 ==

== ENCOUNTER 2024-05-18 13:15 | Outpatient (AMB) | payer MEDICARE, SELFPAY ==
[2024-05-18 13:18] VITALS: BP 124/86; PULSE 79; O2SAT 98
--- NOTE | 2024-05-18 13:18 | A.OFFPC_ITS ---
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 Required: No Accompanied by: Self / Same As Patient Allergies penicillin V Allergy (Unknown, Verified 05/18/24 13:18) Unknown Tobacco use date assessed: 05/18/24 Fall risk assessment: 1 Fall in past year Last assessed Fall Risk: 05/18/24 Dental Screening Dental Screen Date: 05/18/24 Did you have a dental visit in the last 12 months?: Yes Did you have a dental problem in the last 6 months where you did not have access to dental care?: No Was dental information given to patient?: Patient has dentist [facility] Medical History Frequency of micturition Frequency of micturition Osteopenia Tubular adenoma of colon MGUS (monoclonal gammopathy of unknown significance) Peripheral vascular disease Knee osteoarthritis Impaired glucose tolerance Obesity (BMI 30-39.9) Hypercholesterolemia Asthma Surgical History History of sinus surgery S/P FINESSE-BSO Family History Father CVD (cardiovascular disease) Mother Stroke High cholesterol Maternal Aunt Ovarian cancer Pancreatic cancer Social History Household Members: Spouse Housing: House Alcohol intake: current Alcohol intake frequency: a few times a month Patient Tobacco Use Status: Never used Tobacco e-Cigarette/Vaping Use: Never Used Second Hand Smoke Exposure: No service: No Current occupational status: retired Sexual orientation: Straight/Heterosexual Gender identity: Female Cognitive needs: No Hearing needs: No Vision needs: Yes Questionnaire PHQ-9 Over the last 2 weeks, how often have you been bothered by any of the following problems? 1. Little interest or pleasure in doing things: not at all 2. Feeling down, depressed, or hopeless: not at all 3. Trouble falling or staying asleep, or sleeping too much: not at all 4. Feeling tired or having little energy: not at all 5. Poor appetite or overeating: not at all 6. Feeling bad about yourself - or that you are a failure or have let yourself or your family down: not at all 7. Trouble concentrating on things, such as reading the newspaper or watching television: not at all 8. Moving or speaking so slowly that other people could have noticed. Or the opposite - being so fidgety or restless that you have been moving around a lot more than usual: not at all 9. Thoughts that you would be better off or of hurting yourself in some way: not at all Total score: 0 Depression Screening Interpretation: Negative Depression Screening Done: Yes 15558 - PHQ-9 Billing: Yes Source: Developed by Drs. Roberto Carlos Patel, Rosangela Alcantara, Alejandro Callejas and colleagues, with an educational bogdan from [email or web address]. Thrive Questionnaire Date Thrive assessed: 05/18/24 I am a: Patient What is your living situation today?: I have a steady place to live Within the past 12 months, did the food you bought not last and you didn't have the money to get more?: Never true Within the past 12 months, did you worry whether your food would run out before you got money to buy more?: Never true Do you have trouble paying for medicines?: No Do you have trouble getting transportation to medical appointments?: No Do you have trouble paying your heating and electricity bill?: No Do you have trouble taking care of your child, family member or friend?: No Do you have trouble with day-to-day activities such as bathing, preparing meals, shopping, managing finances, etc.?: No Are you currently unemployed and looking for a job?: No Are you interested in more education?: No Please select the resources that you would like help with: None Currently or been in a relationship where the following occur: No concerns reported THRIVE Score: 0 AUDIT C Alcohol Use Questionnaire (AUDIT-C) 1. How often do you have a drink containing alcohol?: 2-3 times a week 2. How many drinks containing alcohol do you have on a typical day when you are drinking?: 1 or 2 3. How often do you have six or more drinks on one occasion?: Never Total Score: 3 MARY JO-7 AMB Questionnaire MARY JO-7 Date MARY JO - 7 assessed: 05/18/24 Feeling nervous, anxious, or on edge: 0 = Not at all Not being able to stop or control worryin = Not at all Worrying too much about different things: 0 = Not at all Trouble relaxin = Not at all Being so restless that it is hard to sit still: 0 = Not at all Becoming easily annoyed or irritable: 0 = Not at all Feeling afraid as if something awful might happen: 0 = Not at all Total MARY JO-7 score (0-4 normal; 5-9 mild; 10-14 moderate; 15-21 severe): 0 Source: Developed by Drs. Roberto Carlos Patel, Rosangela Alcantara, Alejandro Callejas and colleagues, with an educational bogdan from [email or web address]. Physical exam (Primary Care) Vital Signs: Last Vital Signs Pulse 79 05/18/24 13:18 BP 124/86 05/18/24 13:18 Pulse Ox 98 05/18/24 13:18 Oxygen Delivery Method Room Air 05/18/24 13:18 Tobacco/Smoking Status: Tobacco use Status Tobacco use date assessed 05/18/24 05/18/24 13:24 Patient Tobacco Use Status Never used Tobacco 05/18/24 13:24 e-Cigarette/Vaping Use Never Used 05/18/24 13:24 PHQ-9: PHQ-9 Score PHQ-9: Total score 0 05/18/24 13:47 Depression Screening Interpretation: Negative Thrive Assessment: Date of Thrive Assessment Date Thrive assessed 05/18/24 05/18/24 13:24 Currently or been in a relationship where the following occur: No concerns reported Const General: alert; No acute distress Eyes Conjunctivae: conjunctivae normal Resp Auscultation: clear to auscultation bilaterally Cardio Rate: regular rate Rhythm: regular rhythm GI Inspection: Yes normal to inspection Extrem General: Yes normal to inspection and No edema Coding Level of Care Code Est Pt Level 4 (39741) Complex EM visit Add On G2211 Diagnoses Mild intermittent asthma without complication J45.20 Asthma complication type: uncomplicated Asthma persistence: intermittent Asthma severity: mild Hypercholesterolemia E78.00 Obesity (BMI 30-39.9) E66.9 Impaired glucose tolerance R73.02 MGUS (monoclonal gammopathy of unknown significance) D47.2 Knee osteoarthritis M17.10 Additional Codes PHQ-9 - 52126 - PHQ-9 Billing: Yes ([id number]) Assessment & Plan Assessment & Plan (1) Asthma: Code(s): J45.909 - Unspecified asthma, uncomplicated Category: Medical Qualifiers: Asthma complication type: uncomplicated Asthma persistence: intermittent Asthma severity: mild Qualified Code(s): J45.20 - Mild intermittent asthma, uncomplicated Plan: Patient has albuterol inhaler as well as montelukast. (2) Hypercholesterolemia: Code(s): E78.00 - Pure hypercholesterolemia, unspecified Category: Medical Plan: Avoid fried foods, chicken skin, eggs, butter margarine, pastries and meat. Be it pork or beef they have a lot of cholesterol LDL goal of less than 130 and triglyceride of less than 150 advised to get blood work done (3) Obesity (BMI 30-39.9): Code(s): E66.9 - Obesity, unspecified Category: Medical Plan: Diet and exercise (4) Impaired glucose tolerance: Code(s): R73.02 - Impaired glucose tolerance (oral) Category: Medical Plan: Decrease the amount of carbohydrate intake, pasta, bread, rice and potatoes are all sugar and that is aside from all the sweet stuff, remember that fruits are good but they are Sweet also. (5) MGUS (monoclonal gammopathy of unknown significance): Comment: Dr. Avelino MCRAE October 2011, IgM high October 2014, last blood work 09/2021 SPEP SFLC, UPEP Alk phos with fractionation Code(s): D47.2 - Monoclonal gammopathy Category: Medical Plan: Patient is being followed up by hematology oncology and workup being done (6) Knee osteoarthritis: Code(s): M17.10 - Unilateral primary osteoarthritis, unspecified knee Category: Medical Plan History of Present Illness The patient is an 84-year-old female presenting with persistent bilateral knee pain and swelling. The clinical course began four days ago, with a significant intensification of pain and swelling in the left knee, impairing mobility and physical function. The patient's condition is compounded by known advanced degenerative arthritis in both knees, extensively affecting the femoral- patellofemoral joint spaces. She has previously tried conservative management, including naproxen and topical analgesics, albeit with limited efficacy. She admits a historical reluctance towards surgical intervention following a familial observation of knee replacement recovery, opting instead for continuous analgesic trials and muscle rub adjuncts. Her condition coexists alongside her complex medical profile, inclusive of obesity, hypercholesterolemia, asthma, impaired glucose tolerance, and MGUS. Previous hematological assessment confirmed stable, non-worrying monoclonal protein levels. There is an underlying consciousness of cumulative impacts on quality of life due to arthritis intensified by episodic exacerbations. Health Maintenance - The patient's mammogram was up to date as of December 2023. - Bone density screening was performed in January 2023 and previously in 2016. - Lipid management goals include targeting an LDL cholesterol level of less than 130 mg/dL and triglycerides of less than 150 mg/dL, with lifestyle modification advice given. - Advise on diet and exercise modifications to help manage elevated cholesterol and impaired glucose tolerance. Social History - Housing: The patient is in the process of selling her house after long-term occupancy. - Family Status: She mentions a relative named Chaitanya and acknowledges caregiving responsibilities and arrangements. - Functional Status: Patient reports reduced physical activity due to knee pain, limiting her ability to handle household activities. - Use of oqip-stt-jwngfae medication and multiple topical remedies for arthriti s. Review of Systems - Musculoskeletal: Reports acute exacerbation of joint pain and swelling in bilateral knees. - Gastrointestinal: Denies any gastrointestinal symptoms but confirms taking medication with food. - Respiratory: Denies any breathing difficulties, maintained on montelukast and albuterol. - Hematologic: Denies recent infections; knowledgeable about her higher IgM levels but reassured on hematology findings. - Endocrine: Denies recent thyroid issues, with last test conducted in December. Physical Exam Results Labs: - Elevated cholesterol noted in December. - Most recent lab workup on April 11 shows normal renal function, blood sugar within limits, normal electrolytes, and normal liver function. - Hemoglobin and hematocrit within normal range, slight elevation in granuloc ytes and monocytes without clinical concern. Plan The patient's management plan includes continued use of naproxen for arthritic pain control, coupled with glucosamine supplements and topical relief options to address symptomatic swelling and discomfort in the knees. Non-surgical interventions remain the focus based on patient preference, avoiding stronger narcotic analgesics due to potential adverse effects. Recommendations emphasize leveraging lifestyle modifications for cholesterol and glucose management, with regular monitoring and follow-up on hematological parameters, given her MGUS co ndition. Maintenance of regular asthma medication compliance is advocated, aligning with respiratory stability observed. Patient was informed and verbally consented to the use of an ambient scribe for clinic note documentation during this visit. Discussion Notes During the consultation, we discussed the management of the patient's knee arthritis, focusing on conservative therapy, including naproxen and topical analgesic use. Alternatives, such as topical lidocaine, were introduced, considering patient reluctance towards narcotic medications. Potential use of knee braces was advised to mitigate swelling, with optional orthopedics referral and cortisone injection deferred. We reinforced regular hematological evaluation relating to MGUS and assured stable findings. Lipid and glucose control was addressed through lifestyle modification advice, reflecting recent satisfactory laboratory parameters. Given housing transition plans, the patient's functional independence remains a pivotal concern, thus influencing therapeutic preference decisions. Patient Instructions - Continue taking naproxen for pain relief, and always take it with food to minimize gastrointestinal discomfort. - Consider using a knee brace for added support and to reduce swelling. - Use glucosamine and topical products like tiger balm as adjunctive treatments to manage arthritis symptoms. - Maintain regular asthma management with albuterol and montelukast. - Follow a heart-healthy diet and engage in light exercise to manage cholesterol and glucose levels. - Schedule routine follow-ups for hematological assessments. - Remain hydrated to support kidney function. - Be mindful of any increased swelling or significant pain changes that may necessitate sooner review or specialized care. Orders: Orders Comprehensive Met. Panel Today R73.02 - Impaired glucose tolerance (oral) Vitamin D 25-OH Total Today R73.02 - Impaired glucose tolerance (oral) Ferritin Today R73.02 - Impaired glucose tolerance (oral) Reticulocyte Count Today R73.02 - Impaired glucose tolerance (oral) Hemoglobin A1c Today R73.02 - Impaired glucose tolerance (oral) Thyroid Stimulating Hormone Today R73.02 - Impaired glucose tolerance (oral) Complete Blood Count Auto Diff Today R73.02 - Impaired glucose tolerance (oral) Vitamin B12 and Folate Today R73.02 - Impaired glucose tolerance (oral) Lipid Panel Today E78.00 - Pure hypercholesterolemia, unspecified, R73.02 - Impaired glucose tolerance (oral) Free T4 (Free Thyroxine) Today R73.02 - Impaired glucose tolerance (oral) IRON PROFILE Today R73.02 - Impaired glucose tolerance (oral)
== END 2024-05-18 14:06 | disposition home or self-care (01) ==
LOC: HO.HMCH 13:16
PROVIDERS: PCP Internal Medicine; Visit Provider Internal Medicine
DX: J45.20 Mild intermittent asthma, uncomplicated (principal); E78.00 Pure hypercholesterolemia, unspecified; E66.9 Obesity, unspecified; R73.02 Impaired glucose tolerance (oral); D47.2 Monoclonal gammopathy; M17.10 Unilateral primary osteoarthritis, unspecified knee

== ENCOUNTER → 2024-05-18 13:15 | Outpatient (BNVA) | payer MEDICARE, SELFPAY | PROVIDERS: PCP Internal Medicine; Visit Provider Internal Medicine | DX: J45.20 Mild intermittent asthma, uncomplicated (principal); E78.00 Pure hypercholesterolemia, unspecified; E66.9 Obesity, unspecified; R73.02 Impaired glucose tolerance (oral); D47.2 Monoclonal gammopathy; M17.10 Unilateral primary osteoarthritis, unspecified knee | CPT/HCPCS: 96127; 99212 ==

== ENCOUNTER 2024-05-27 11:36 | Outpatient (AMB) | payer MEDICARE, SELFPAY ==
--- NOTE | 2024-05-27 11:37 | MHC.OFFWIV ---
Intake Vital Signs 05/27/24 11:42 Weight 200 lb BP 120/78 Blood Pressure Location Lt brachial Position Sitting Pulse 80 Pulse Source Pulse Oximeter Temp 97.6 F Temp Source Oral Pulse Oximetry (%) 97 Oxygen Delivery Method Room Air Intake Visit Reasons: EP sore throat, congestion, mucus Intake Note: Patient here for sore throat at night, congestion and green mucus that has been present for about 3 days. Patient Tobacco Use Status: Never used Tobacco Allergies penicillin V Allergy (Unknown, Verified 05/27/24 11:43) Unknown Do you need a note to return to daycare/school/sports/work: No HPI HPI Comments History of Present Illness Details History of Present Illness - The patient is an 84-year-old female presenting with postnasal drip and scratchy throat, suspecting sinusitis. - The postnasal drip primarily occurs nocturnally, leading to a consistently scratchy throat over the past six days, raising concern for sinusitis. - Significant stress from personal factors, including selling a home and her 's hospitalization for a brain tumor, correlates with mild weight gain due to stress-eating behavior. - Despite regular exposure to hospital environments, the patient denies any fever. - Intermittent shortness of breath occurs mainly when walking in the hospital, attributed to increased stress levels. - The patient has taken cetirizine and montelukast for seasonal allergy control, which could aid in alleviating sinus-related symptoms. Physical Exam General: Cooperative, healthy appearing, comfortable, no acute distress and well developed Orientation: Patient oriented x3 Limitations: No limitations Head: Normal to inspection Ears: Hearing grossly normal bilaterally, TM's with cerumen bilaterally Nose: Normal External nose present, Face and sinus: Normal facial exam, but pain noted on lymph nodes Eyes: Appearance normal, both eyes and all related structures Mouth: oral mucosa normal, moist Throat: posterior oropharynx with erythema, no exudates noted, no cobblestoning noted Neck: Normal visual inspection and Yes full ROM Respiratory: Normal respiratory effort and able to speak in complete sentences. Clear to auscultation bilaterally, Cardiovascular: Regular rate and rhythm. Normal S1 and S2 Skin: No rashes or lesions noted Neuro: Patient oriented x3 Extremities: Normal to inspection [facility] Medical History Frequency of micturition Frequency of micturition Osteopenia Tubular adenoma of colon MGUS (monoclonal gammopathy of unknown significance) Peripheral vascular disease Knee osteoarthritis Impaired glucose tolerance Obesity (BMI 30-39.9) Hypercholesterolemia Asthma Surgical History History of sinus surgery S/P FINESSE-BSO Family History Father CVD (cardiovascular disease) Mother Stroke High cholesterol Maternal Aunt Ovarian cancer Pancreatic cancer Social History Household Members: Spouse Housing: House Alcohol intake: current Alcohol intake frequency: a few times a month Patient Tobacco Use Status: Never used Tobacco e-Cigarette/Vaping Use: Never Used Second Hand Smoke Exposure: No service: No Current occupational status: retired Sexual orientation: Straight/Heterosexual Gender identity: Female Cognitive needs: No Hearing needs: No Vision needs: Yes Review of Systems Const All systems reviewed & are unremarkable except as noted in HPI and below Physical Exam Vital Signs: Last Vital Signs Temp 97.6 F 05/27/24 11:42 Pulse 80 05/27/24 11:42 BP 120/78 05/27/24 11:42 Pulse Ox 97 05/27/24 11:42 Oxygen Delivery Method Room Air 05/27/24 11:42 Assessment & Plan Assessment & Plan (1) URI, acute: Code(s): J06.9 - Acute upper respiratory infection, unspecified Plan: I will conduct testing for influenza, COVID-19, and RSV because of the patient's hospital exposure, aiming for differential diagnosis clarification. Given the absence of fever and predominantly night-time scratchy throat accompanied by erythema without exudate, strep throat is unlikely. To manage symptoms associated with postnasal drip, such as throat irritation, increased hydration will be advised for symptomatic relief. In case of negative viral test results, potential sinusitis will be managed with an antibiotic prescription (Augmentin) if symptoms persist. Patient was informed and verbally consented to the use of an ambient scribe for clinic note documentation during this visit. Orders: Orders SARS-CoV2/FLU/RSV Today R09.89 - Other specified symptoms and signs involving the circulatory and respiratory systems Coding Level of Care Code Est Pt Level 3 (28517) Diagnoses URI, acute J06.9
[2024-05-27 11:42] VITALS: BP 120/78; PULSE 80; TEMP 36.4; O2SAT 97
== END 2024-05-27 12:11 | disposition home or self-care (01) ==
PROVIDERS: PCP Internal Medicine; Visit Provider Physician Assistant
DX: J06.9 Acute upper respiratory infection, unspecified (principal)

== ENCOUNTER 2024-05-27 11:36 | Outpatient (REF) | payer MEDICARE, SELFPAY ==
[2024-05-27 15:25] LABS: Influenza A PCR NEGATIVE (Negative); Influenza B PCR NEGATIVE (Negative); Resp Syncy Virus RNA Qual PCR NEGATIVE (Negative); SARS COV2 PCR INHOUSE NEGATIVE (Negative)
== END 2024-05-27 11:37 | disposition home or self-care (01) ==
LOC: HO.LAB 11:36
PROVIDERS: PCP Internal Medicine; Visit Provider Physician Assistant
DX: J06.9 Acute upper respiratory infection, unspecified (principal); R09.89 Other specified symptoms and signs involving the circulatory and respiratory systems
CPT/HCPCS: 0241U; 99212

== ENCOUNTER 2024-07-19 11:52 | Outpatient (AMB) | payer MEDICARE, SELFPAY ==
--- NOTE | 2024-07-19 11:54 | MHC.PC.OV ---
Vital Signs 07/19/24 11:55 Height 5 ft 4 in Weight 190 lb 6 oz BMI 32.7 BP 120/72 Blood Pressure Location Lt brachial Position Sitting Pulse 77 Pulse Source Pulse Oximeter Temp 97.3 F Temp Source Temporal Artery Scan Pulse Oximetry (%) 97 Oxygen Delivery Method Room Air Intake Visit Reasons: stress and strange pains Intake Note: Patient is here to follow up on Grief. Access Services Librarian Required: No Ingot Stripper: Not Required per policy Accompanied by: Self / Same As Patient Allergies penicillin V Allergy (Unknown, Verified 07/19/24 11:55) Unknown Medication List - Last Reconciled 07/19/24 by Sushila Saldana PA-C albuterol sulfate 90 mcg/actuation (ProAir HFA) 2 puffs inhalation Q6H PRN 90 days calcium carbonate-vitamin D3 600 mg-5 mcg (200 unit) (Calcium 600 + D(3)) 600 caps PO DAILY cetirizine (Zyrtec) 10 mg PO DAILY montelukast (Singulair) 10 mg PO BEDTIME 90 days multivitamin 1 tab PO DAILY Tobacco use date assessed: 07/19/24 Fall risk assessment: No Falls in past year Last assessed Fall Risk: 07/19/24 Dental Screening Dental Screen Date: 05/18/24 HPI stress and strange pains HPI Details 84-year-old female with past medical history of asthma, hypercholesterolemia, obesity, impaired glucose tolerance, peripheral vascular disease, MGUS last seen 05/[address] Magaña coming in for acute problem. In review of the notes, patient follows with Hematology last seen 04/2024 for MGUS has never had active myeloma blood work has been stable for 2 years advised to follow up as needed. Ppresenting with stress management and anxiety due to the recent loss of her , resulting in changes in behavior such as stress-induced eating and disrupted sleep patterns. She has heightened anxiety and has been waking up multiple times at night. She also reports muscle pain related to decreased physical activity and has a concern of borderline cholesterol, worsening due to her erratic eating habits. The patient has bilateral cerumen impaction despite regular use of Debrox and recent ear cleaning, and also suffers from allergic rhinitis, managed with Zyrtec and prescribed eye drops. Patient was previously having muscle aches and pains that have since resolved. [facility] Medical History Frequency of micturition Frequency of micturition Osteopenia Tubular adenoma of colon MGUS (monoclonal gammopathy of unknown significance) Peripheral vascular disease Knee osteoarthritis Impaired glucose tolerance Obesity (BMI 30-39.9) Hypercholesterolemia Asthma Surgical History History of sinus surgery S/P FINESSE-BSO Family History Father CVD (cardiovascular disease) Mother Stroke High cholesterol Maternal Aunt Ovarian cancer Pancreatic cancer Social History Household Members: Spouse Housing: House Alcohol intake: current Alcohol intake frequency: a few times a month Patient Tobacco Use Status: Never used Tobacco e-Cigarette/Vaping Use: Never Used Second Hand Smoke Exposure: No service: No Current occupational status: retired Sexual orientation: Straight/Heterosexual Gender identity: Female Cognitive needs: No Hearing needs: No Vision needs: Yes Questionnaire Thrive Questionnaire Date Thrive assessed: 05/18/24 MARY JO-7 AMB Questionnaire MARY JO-7 Date MARY JO - 7 assessed: 05/18/24 Source: Developed by Drs. Roberto Carlos Patel, Rosangela Alcantara, Alejandro Callejas and colleagues, with an educational bogdan from [employer]. Review of Systems Const Denies body aches, Denies chills, Denies fever(s) and Denies poor appetite Eyes Reports no additional complaints Card Denies chest pain, Denies lightheadedness and Denies dyspnea Resp Denies dyspnea GI Denies abdominal pain, Denies nausea and Denies vomiting Reports no additional complaints Musc Reports no additional complaints and Denies abnormal gait Skin/Breast Reports system reviewed and no additional complaints, except as documented Neuro Denies abnormal gait Psych Reports no additional complaints Physical exam (Primary Care) Vital Signs: Last Vital Signs Temp 97.3 F 07/19/24 11:55 Pulse 77 07/19/24 11:55 BP 120/72 07/19/24 11:55 Pulse Ox 97 07/19/24 11:55 Oxygen Delivery Method Room Air 07/19/24 11:55 BMI result Body Mass Index 32.7 Tobacco/Smoking Status: Tobacco use Status Tobacco use date assessed 07/19/24 07/19/24 11:57 Patient Tobacco Use Status Never used Tobacco 07/19/24 11:57 e-Cigarette/Vaping Use Never Used 07/19/24 11:57 Thrive Assessment: Date of Thrive Assessment Date Thrive assessed 05/18/24 07/19/24 11:57 Const General: cooperative, healthy appearing, comfortable and no acute distress Orientation/consciousness: patient oriented x3 HENMT Head: Yes normocephalic Ears: hearing grossly normal bilaterally and Abnormal EAC present cerumen impaction bilateral General nose exam: Normal external nose present Eyes General: appearance normal, both eyes and all related structures Conjunctivae: conjunctivae normal Neck Neck: Yes full ROM and Yes no lymphadenopathy Resp Effort & Inspection: normal respiratory effort Auscultation: clear to auscultation bilaterally, no crackles, no rales, no rhonchi and no wheezes Cardio Rate: regular rate Rhythm: regular rhythm Skin General skin exam: no rashes or lesions noted Neuro General: patient oriented x3 Gait exam (Neuro): Normal gait present Extrem General: Yes normal to inspection, Yes full ROM and No edema Psych Affect: normal affect Attitude: cooperative Insight: Good insight present (Psych) Judgement: Good judgement present (Psych) Coding Level of Care Code Est Pt Level 3 (88739) Diagnoses Grief reaction F43.20 Impacted cerumen of both ears H61.23 Assessment & Plan Assessment & Plan (1) Grief reaction: Code(s): F43.20 - Adjustment disorder, unspecified Category: Medical Plan: To address the anxiety related to the patient's recent bereavement, a low-dose antidepressant will be started. The patient was advised on potential side effects, such as reduced libido and possible weight gain. The implementation of dietary improvements and reinstatement of physical exercise is encouraged to better manage hypercholesterolemia. The patient is expected to follow up to reassess the impact of the new medication on her anxiety and stress levels. Recommendations were made for sleep hygiene practices to improve sleep quality. Discussed at length today patient's symptoms. Patient has been going through high amounts of stress and anxiety continues to do her late 's health and passing. Offered counseling today which was declined. Plan to follow up in 1 month or sooner as needed. Patient denies any feelings of self-harm at this time. (2) Impacted cerumen of both ears: Code(s): H61.23 - Impacted cerumen, bilateral Category: Medical Plan: Advised patient to avoid the use of Q-tips continue to use Debrox and schedule appointment for ear cleaning with our office. Plan This note was constructed using voice recognition software. While every effort has been made to ensure accuracy and shirrer, still areas may have been included sometimes these areas may affect the content or meeting of the given symptoms. Total time spent caring for the patient today was 30 minutes. This includes time spent before the visit reviewing the chart, time spent during the visit, and time spent after the visit and documentation. Patient was informed and verbally consented to the use of an ambient scribe for clinic note documentation during this visit. Medications: New sertraline 25 mg PO DAILY 30 tabs 1RF Discontinued doxycycline hyclate Discontinued Reason: Patient no longer taking 100 mg PO BID 14 tabs 0RF
[2024-07-19 11:55] VITALS: BP 120/72; PULSE 77; TEMP 36.3; O2SAT 97; BMI 32.7
== END 2024-07-19 12:49 | disposition home or self-care (01) ==
LOC: HO.HMCH 11:52
PROVIDERS: PCP Internal Medicine
DX: F43.20 Adjustment disorder, unspecified (principal); H61.23 Impacted cerumen, bilateral

== ENCOUNTER → 2024-07-19 11:52 | Outpatient (BNVA) | payer MEDICARE, SELFPAY | PROVIDERS: PCP Internal Medicine | DX: F43.20 Adjustment disorder, unspecified (principal); H61.23 Impacted cerumen, bilateral; Z63.4 Disappearance and death of family member | CPT/HCPCS: 99212 ==

== ENCOUNTER 2024-08-26 10:57 | Outpatient (AMB) | payer MEDICARE, SELFPAY ==
--- NOTE | 2024-08-26 10:58 | MHC.PC.OV ---
Vital Signs 08/26/24 10:59 Height 5 ft 4 in Weight 193 lb 4 oz BMI 33.2 BP 126/82 Blood Pressure Location Lt brachial Position Sitting Pulse 74 Pulse Source Pulse Oximeter Pulse Oximetry (%) 97 Oxygen Delivery Method Room Air Intake Visit Reasons: 6mth f/u Industrial Relations Worker Required: No Accompanied by: Self / Same As Patient Allergies penicillin V Allergy (Unknown, Verified 08/26/24 10:59) Unknown Medication List - Last Reconciled 08/26/24 by Darlene Magaña MD albuterol sulfate 90 mcg/actuation (ProAir HFA) 2 puffs inhalation Q6H PRN 90 days calcium carbonate-vitamin D3 600 mg-5 mcg (200 unit) (Calcium 600 + D(3)) 600 caps PO DAILY cetirizine (Zyrtec) 10 mg PO DAILY montelukast (Singulair) 10 mg PO BEDTIME 90 days multivitamin 1 tab PO DAILY omeprazole 20 mg PO DAILY PRN sulfamethoxazole-trimethoprim 800-160 mg (Bactrim DS) 1 tab PO BID Tobacco use date assessed: 08/26/24 Fall risk assessment: 1 Fall in past year Last assessed Fall Risk: 08/26/24 Dental Screening Dental Screen Date: 08/26/24 Did you have a dental visit in the last 12 months?: Yes Did you have a dental problem in the last 6 months where you did not have access to dental care?: No Was dental information given to patient?: Patient has dentist HPI 6mth f/u HPI Details August 18 noted a R upper back/shoulder and had discharge [facility] Medical History Frequency of micturition Frequency of micturition Osteopenia Tubular adenoma of colon MGUS (monoclonal gammopathy of unknown significance) Peripheral vascular disease Knee osteoarthritis Impaired glucose tolerance Obesity (BMI 30-39.9) Hypercholesterolemia Asthma Surgical History History of sinus surgery S/P FINESSE-BSO Family History Father CVD (cardiovascular disease) Mother Stroke High cholesterol Maternal Aunt Ovarian cancer Pancreatic cancer Social History (Reviewed 08/26/24 @ 10:59 by VIR[place] Brooke Household Members: Spouse Housing: House Alcohol intake: current Alcohol intake frequency: a few times a month Patient Tobacco Use Status: Never used Tobacco e-Cigarette/Vaping Use: Never Used Second Hand Smoke Exposure: No service: No Current occupational status: retired Sexual orientation: Straight/Heterosexual Gender identity: Female Cognitive needs: No Hearing needs: No Vision needs: Yes Questionnaire PHQ-9 Over the last 2 weeks, how often have you been bothered by any of the following problems? 1. Little interest or pleasure in doing things: not at all 2. Feeling down, depressed, or hopeless: not at all 3. Trouble falling or staying asleep, or sleeping too much: not at all 4. Feeling tired or having little energy: not at all 5. Poor appetite or overeating: not at all 6. Feeling bad about yourself - or that you are a failure or have let yourself or your family down: not at all 7. Trouble concentrating on things, such as reading the newspaper or watching television: not at all 8. Moving or speaking so slowly that other people could have noticed. Or the opposite - being so fidgety or restless that you have been moving around a lot more than usual: not at all 9. Thoughts that you would be better off or of hurting yourself in some way: not at all Total score: 0 Depression Screening Interpretation: Negative Depression Screening Done: Yes 19423 - PHQ-9 Billing: Yes Source: Developed by Drs. Roberto Carlos Patel, Rosangela Alcantara, Alejandro Callejas and colleagues, with an educational bogdan from [employer]. Thrive Questionnaire Date Thrive assessed: 08/26/24 I am a: Patient What is your living situation today?: I have a steady place to live Within the past 12 months, did the food you bought not last and you didn't have the money to get more?: Never true Within the past 12 months, did you worry whether your food would run out before you got money to buy more?: Never true Do you have trouble paying for medicines?: No Do you have trouble getting transportation to medical appointments?: No Do you have trouble paying your heating and electricity bill?: No Do you have trouble taking care of your child, family member or friend?: No Do you have trouble with day-to-day activities such as bathing, preparing meals, shopping, managing finances, etc.?: No Are you currently unemployed and looking for a job?: No Are you interested in more education?: No Please select the resources that you would like help with: None Currently or been in a relationship where the following occur: No concerns reported THRIVE Score: 0 AUDIT C Alcohol Use Questionnaire (AUDIT-C) 1. How often do you have a drink containing alcohol?: 2-3 times a week 2. How many drinks containing alcohol do you have on a typical day when you are drinking?: 1 or 2 3. How often do you have six or more drinks on one occasion?: Never Total Score: 3 MARY JO-7 AMB Questionnaire MARY JO-7 Date MARY JO - 7 assessed: 08/26/24 Feeling nervous, anxious, or on edge: 0 = Not at all Not being able to stop or control worryin = Not at all Worrying too much about different things: 0 = Not at all Trouble relaxin = Not at all Being so restless that it is hard to sit still: 0 = Not at all Becoming easily annoyed or irritable: 0 = Not at all Feeling afraid as if something awful might happen: 0 = Not at all Total MARY JO-7 score (0-4 normal; 5-9 mild; 10-14 moderate; 15-21 severe): 0 Source: Developed by Drs. Roberto Carlos Patel, Rosangela Alcantara, Alejandro Callejas and colleagues, with an educational bogdan from [employer]. Physical exam (Primary Care) Vital Signs: Last Vital Signs Pulse 74 08/26/24 10:59 BP 126/82 08/26/24 10:59 Pulse Ox 97 08/26/24 10:59 Oxygen Delivery Method Room Air 08/26/24 10:59 BMI result Body Mass Index 33.2 Tobacco/Smoking Status: Tobacco use Status Tobacco use date assessed 08/26/24 08/26/24 11:05 Patient Tobacco Use Status Never used Tobacco 08/26/24 11:05 e-Cigarette/Vaping Use Never Used 08/26/24 11:05 PHQ-9: PHQ-9 Score PHQ-9: Total score 0 08/26/24 11:05 Depression Screening Interpretation: Negative Thrive Assessment: Date of Thrive Assessment Date Thrive assessed 08/26/24 08/26/24 11:05 Currently or been in a relationship where the following occur: No concerns reported Const General: alert; No acute distress Eyes Conjunctivae: conjunctivae normal Resp Auscultation: clear to auscultation bilaterally Cardio Rate: regular rate Rhythm: regular rhythm GI Inspection: Yes normal to inspection Extrem General: Yes normal to inspection and No edema Coding Level of Care Code Est Pt Level 4 (50876) Diagnoses Grief reaction F43.20 Hypercholesterolemia E78.00 Impaired glucose tolerance R73.02 Overactive bladder N32.81 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 (2) Hypercholesterolemia: Code(s): E78.00 - Pure hypercholesterolemia, unspecified Category: Medical Plan: Avoid fried foods, chicken skin, eggs, butter margarine, pastries and meat. Be it pork or beef they have a lot of cholesterol (3) Impaired glucose tolerance: Code(s): R73.02 - Impaired glucose tolerance (oral) Category: Medical Plan: Decrease the amount of carbohydrate intake, pasta, bread, rice and potatoes are all sugar and that is aside from all the sweet stuff, remember that fruits are good but they are Sweet also. (4) Overactive bladder: Code(s): N32.81 - Overactive bladder Category: Medical (5) Superficial mixed comedonal and inflammatory acne vulgaris: Code(s): L70.0 - Acne vulgaris Category: Medical Plan: will referto dermatology but will treat with antibiotic for now (6) Seborrheic dermatitis: Code(s): L21.9 - Seborrheic dermatitis, unspecified Category: Medical (7) Leg swelling: Code(s): M79.89 - Other specified soft tissue disorders Category: Medical Plan: When sitting down elevate the legs, exercise, and support stockings blood work requested (8) Urge incontinence of urine: Code(s): N39.41 - Urge incontinence Category: Medical Plan: Timed voiding meaning every 1-2 hours even if you do not feel like urinating empty the bladder, avoid drinks with high sweet content like juices or caffeine that makes her urinate, 2 hours before you sleep hold liquids so that in the morning you do not get the bladder to be too full. (9) GERD (gastroesophageal reflux disease): Code(s): K21.9 - Gastro-esophageal reflux disease without esophagitis Category: Medical Plan: Avoid the foods that causes that usually spicy foods, tomato products, juices, coffee, soda and foods that your sensitive to. After eating do not lie down, allow 3-4 hours before in lie down. And keep the head of bed above 30 degrees to avoid the acid from going up. Plan History of Present Illness The patient is an 84-year-old female presenting for a follow-up visit due to anxiety and depression following the passing of her . She has a history of asthma, hypercholesterolemia, impaired glucose tolerance, osteopenia, monoclonal gammopathy of undetermined significance (MGUS), and overactive bladder. Her last blood work in April showed normal blood count, electrolytes, and renal function, but high cholesterol was noted in December. The patient reports experiencing anxiety and depression since the passing of her , which has affected her daily activities. She was prescribed sertraline but has not started taking it yet. She also reports symptoms of GERD, which she manages with antacids as needed. Additionally, she experiences seborrheic dermatitis, characterized by an itchy scalp and dandruff. The patient has noted swelling in her legs, particularly after prolonged periods of standing or sitting. She is concerned about potential circulation issues and has been advised to wear compression stockings. Health Maintenance - Bone density screening is up-to-date. - Colonoscopy screening is up-to-date, last performed in 2017. Social History - Family Status: Recently , experiencing grief and emotional distress. - Exercise: Limited due to pain and swelling in legs. - Housing: Plans to move to [place] permanently. Review of Systems - Psychiatric: Reports anxiety and depression since 's passing. - Gastrointestinal: Reports GERD managed with antacids as needed. - Dermatological: Reports itchy scalp and dandruff consistent with seborrheic dermatitis. - Musculoskeletal: Reports leg swelling, particularly after prolonged standing or sitting. Physical Exam Results - Labs: Normal blood count, electrolytes, and renal function as of April. - Labs: High cholesterol noted in December. Plan The patient was advised to start sertraline for anxiety and depression, although she has not yet initiated the medication. She was also advised to manage GERD symptoms with antacids as needed and to monitor dietary triggers. For seborrheic dermatitis, a medicated shampoo was recommended to alleviate symptoms of an itchy scalp and dandruff. The patient was instructed to wear compression stockings to manage leg swelling and to consider circulation issues. A sulfa antibiotic was prescribed for a skin infection, and a referral to dermatology was suggested for further evaluation. Patient was informed and verbally consented to the use of an ambient scribe for clinic note documentation during this visit. Discussion Notes I discussed with the patient the importance of starting sertraline to help manage her anxiety and depression, emphasizing the potential benefits in improving her mood and daily functioning. We also reviewed her GERD management plan, advising her to use antacids as needed and to be mindful of dietary triggers that may exacerbate symptoms. For her seborrheic dermatitis, I recommended a medicated shampoo to help alleviate her symptoms and improve scalp health. I advised her on the use of compression stockings to address her leg swelling and discussed the potential circulation issues that may be contributing to her symptoms. A sulfa antibiotic was prescribed for her skin infection, and I suggested a dermatology referral for further evaluation and management. Patient Instructions - Start taking sertraline as prescribed to help manage anxiety and depression. - Use antacids as needed for GERD and avoid dietary triggers. - Use medicated shampoo for seborrheic dermatitis as directed. - Wear compression stockings to help with leg swelling. - Take the prescribed sulfa antibiotic for skin infection and follow up with dermatology as needed. Orders: Orders Complete Blood Count Auto Diff Today M79.89 - Other specified soft tissue disorders Thyroid Stimulating Hormone Today M79.89 - Other specified soft tissue disorders B Type Natriuretic Peptide Today M79.89 - Other specified soft tissue disorders UA w Microscopic Today M79.89 - Other specified soft tissue disorders Comprehensive Met. Panel Today - Other specified soft tissue disorders Free T4 (Free Thyroxine) Today M79. - Other specified soft tissue disorders Referrals Dermatology Referral L70.0 - Acne vulgaris Medications: New sulfamethoxazole-trimethoprim 800-160 mg (Bactrim DS) 1 tab PO BID 14 tabs 0RF L70.0 - Acne vulgaris omeprazole 20 mg PO DAILY PRN 30 caps 0RF gerd K21.9 - Gastro-esophageal reflux disease without esophagitis ketoconazole 2% 1 appl topical 2XW 120 mL 0RF L21.9 - Seborrheic dermatitis, unspecified Discontinued sertraline Discontinued Reason: Patient Refused 25 mg PO DAILY 30 tabs 1RF
[2024-08-26 10:59] VITALS: BP 126/82; PULSE 74; O2SAT 97; BMI 33.2
--- OUTSIDE RECORDS SUMMARY | 2024-08-26 11:22 | XMS_ITS | Patient Health Record ---
Author Organization [facility] [place] Address [address] [place] [address] Care Team Providers Care Training And Development Assistant Name Role Phone Darlene Magaña Primary Care Provider Bhanu Amaya Unavailable [phone] Allergies Allergen (clinical drug ingredient) Drug/Non Drug Allergy documented on EMR Reaction Allergy Type Onset Date Status seasonal (uncoded) Unknown Allergy A ctive Penicillin swelling/ itching Drug Allergy Active Reason For Referral No Information Medications Medication SIG (Take, Route, Frequency, Duration) Notes Start Date End Date Status Advair Diskus Not-Ta misha Budesonide Not-Takin g Calcium Active Glucosamine Active Compression Stockings 20-30mm Hg as directed Dx; Intractable edema bilateral feet and legs 11/15/2012 Active Singulair 10 MG 1 tablet in the even ing Orally Once a day for 30 day(s) PRN Active ZyrTEC Allergy PRN Activ e Multivitamin Active Social History Tobacco use other than smoking: Question Answer Notes Are you an other tobacco user? No Problems Problem Type SNOMED Code ICD Code Onset Dates Problem Status W/U Status Risk Notes Problem Acquired hallux valgus (73685071) Hallux valgus (acquired), right foot (M20.11) Active confirmed Plan Of Treatment Pending Test Test Name Order Date X ray : Ankle, left 3V 11/15/2012 X ray : Foot, right 3V 11/15/2012 [id number] 09/25/2014 21193- Debride <25 sq cm 10/09/2014 75953- Debride <25 sq cm 11/09/2014 23894 I&D ABSCESS- SIMPLE,SINGLE 015 Insurance Providers Payer Name Payer Address Payer Phone Subscriber Number Group Number Insured Name Patient Relationship to Insured Coverage Start Date Coverage End Date [facility] 65 Medicare Preferred [address] [place] [address] [id number] Dilia Ascencio Self - patient is the insured Medical (General) History Medical History History ICD Code asthma osteopenia mumps measles chicken pox monoclonal gamopathy Surgical History Surgery Date(Month/Year) sinus surgery hysterectomy 03/1990
== END 2024-08-26 11:42 | disposition home or self-care (01) ==
LOC: HO.HMCH 10:57
PROVIDERS: PCP Internal Medicine; Visit Provider Internal Medicine
DX: F43.20 Adjustment disorder, unspecified (principal); E78.00 Pure hypercholesterolemia, unspecified; R73.02 Impaired glucose tolerance (oral); N32.81 Overactive bladder; L70.0 Acne vulgaris; L21.9 Seborrheic dermatitis, unspecified; M79.89 Other specified soft tissue disorders; N39.41 Urge incontinence; K21.9 Gastro-esophageal reflux disease without esophagitis

== ENCOUNTER → 2024-08-26 10:57 | Outpatient (BNVA) | payer MEDICARE, SELFPAY | PROVIDERS: PCP Internal Medicine; Visit Provider Internal Medicine | DX: N32.81 Overactive bladder (principal); F43.20 Adjustment disorder, unspecified; E78.00 Pure hypercholesterolemia, unspecified; R73.02 Impaired glucose tolerance (oral); L70.0 Acne vulgaris; L21.9 Seborrheic dermatitis, unspecified; M79.89 Other specified soft tissue disorders; N39.41 Urge incontinence; K21.9 Gastro-esophageal reflux disease without esophagitis; F41.9 Anxiety disorder, unspecified; F32.A Depression, unspecified; J45.909 Unspecified asthma, uncomplicated | CPT/HCPCS: 96127; 99212 ==

== ENCOUNTER 2024-09-16 16:33 | Outpatient (REF) | payer MEDICARE, SELFPAY ==
--- OUTSIDE RECORDS SUMMARY | 2024-09-16 16:36 | XMS_ITS | Patient Health Record ---
Author Organization [facility] Address [address] [place] [address] Care Team Providers Care Cotton Weigher Name Role Phone Darlene Magaña MD Primary Care Provider Roberto Carlos Lim [phone] Allergies Allergen (clinical drug ingredient) Drug/Non Drug Allergy documented on EMR Reaction Allergy Type Onset Date Status Penicillin Unknown Drug Allergy Active smoke,grass (uncoded) Unknown Allergy Active Reason For Referral No Information Medications Medication SIG (Take, Route, Fr equency, Duration) Notes Start Date End Date Status Multi Vitamin/Minerals Active ZyrTEC Allergy Activ e Sinus Rinse Active Calcium + D Active Magnesium Active Vitamin C Active Naproxen Active Problems Problem Type SNOMED Code ICD Code Onset Dates Problem Status W/U Status Risk Notes Problem [id number] History of adenomatous polyp of colon (Z86.010) Active confirmed Problem Screening for malignant neoplasm of rectum (272532751) Encounter for screening for malignant neoplasm of rectum (Z12.12) Active confirmed Problem [id number] Preprocedural examination (Z01.818) Active confirmed Plan Of Treatment Future Test Test Name Order Date COLONOSCOPY 06/18/2016 Insurance Providers Payer Name Payer Address Payer Phone Subscriber Number Group Number Insured Name Patient Relationship to Insured Coverage Start Date Coverage End Date [facility] [address] [place], [place] [id number] [phone] [id number] AURELIANO FLAHERTY Self - patient is the insured Medical (General) History Medical History History ICD Code Colonoscopy 12-02-2004 and with removal of small tubular adenomas; mild sigmoid diverticulosis was noted Denies SD,DM,CVA,renal disease Asthma Surgical History Surgery Date(Month/Year) FINESSE Sinus surgery Oral surgery
[2024-09-16 16:57] LABS: MANUAL DIFF FLAG NO
[2024-09-16 17:15] LABS: Hematocrit 36.7 % (37.0-47.0); Hemoglobin 12.4 g/dl (12.0-16.0); Imm Gran Abs Auto 0.03 X10*3/uL (0.00-0.03); Imm Gran Pct Auto 0.3 % (0.0-0.4); Lymphocytes Absolute Auto 1.8 X10*3/uL (1.2-4.9); Mean Corpuscular HGB Conc 33.8 g/dl (31.0-35.0); Mean Corpuscular Hemoglobin 30.6 pg (27.0-33.0); Mean Corpuscular Volume 90.6 fL (80.0-98.0); NRBC Abs Auto 0.000 X10*3/uL (0.0-0.012); NRBC Pct Auto 0.0 /100WBC (0.0-0.2); Platelet Count 274 X10*3/uL (160-400); Red Blood Count 4.05 X10*6/uL (4.20-5.50); Reticulocytes Absolute 0.076 X10*6/uL (0.026-0.095); White Blood Count 9.1 X10*3/uL (4.8-10.8)
[2024-09-16 17:30] LABS: Hemoglobin A1C 108.7668 umol/L; Total Hemoglobin (HGBA1C) 3289.5826 umol/L
[2024-09-16 17:41] LABS: B Type Natriuretic Peptide 66 pg/mL (<100)
[2024-09-16 17:41] LABS: Appearance Urine Clear; Glucose Urine UA Negative (Negative); PH 5.5 (5.0-9.0); Specific Gravity - Urine 1.015 (1.005-1.025); UMIC TRIGGER UACC YES
[2024-09-16 17:42] LABS: Alanine Aminotransferase 19 U/L (0-31); Albumin Level 4.3 g/dL (3.5-5.0); Alkaline Phosphatase 161 U/L (39-117); Anion Gap 13 (12-20); Aspartate Amino Transferase 27 U/L (5-31); Blood Urea Nitrogen 27 mg/dL (9-16); Calcium 10.1 mg/dL (8.4-10.2); Carbon Dioxide 24 mmol/L (22-29); Chloride 102 mmol/L (96-108); Cholesterol 216 mg/dL (<200); Estimated Glomerular Filt Rate 48; HDL Cholesterol 66 mg/dL (>40); Iron 58 mcg/dL (30-160); Percent Iron Saturation 30 % (15-50); Potassium 4.2 mmol/L (3.3-5.1); Sodium 135 mmol/L (135-145); Total Iron Binding Capacity 192 mcg/dL (228-428); Total Protein 7.2 g/dL (6.5-8.0); Triglycerides 78 mg/dL (<150); Unsaturated Iron Binding 134 ug/dL
[2024-09-16 17:46] LABS: UACC Culture Trigger YES
[2024-09-16 18:01] LABS: Ferritin 113 ng/mL (10-250); Free T4 (Free Thyroxine) 1.01 ng/dL (0.71-1.85); Thyroid Stimulating Hormone 1.50 uIU/mL (0.32-4.0)
[2024-09-16 18:13] LABS: Folate 12.8 ng/mL (> or = 4.0); Vitamin B12 476 pg/mL (200-900)
== END 2024-09-16 16:34 | disposition home or self-care (01) ==
LOC: HO.LAB 16:33
PROVIDERS: Absent Provider Internal Medicine; PCP Internal Medicine; Visit Provider Internal Medicine
DX: R73.02 Impaired glucose tolerance (oral) (principal); M79.89 Other specified soft tissue disorders; E78.00 Pure hypercholesterolemia, unspecified; N39.0 Urinary tract infection, site not specified; B96.20 Unspecified Escherichia coli [E. coli] as the cause of diseases classified elsewhere
CPT/HCPCS: 36415; 80053; 80061; 81001; 82306; 82607; 82728; 82746; 83036; 83540; 83880; 84439; 84443; 85025; 85045; 87086; 87088; 87186

== ENCOUNTER 2024-12-08 13:06 | Outpatient (AMB) | payer MEDICARE, SELFPAY ==
[2024-12-08 13:09] VITALS: BP 140/80; PULSE 70; TEMP 36.1; O2SAT 97; BMI 32.8
--- NOTE | 2024-12-08 13:09 | A.OFFPC_ITS ---
Vital Signs 12/08/24 13:09 Height 5 ft 4 in Weight 191 lb 2 oz BMI 32.8 BP 140/80 H Blood Pressure Location Lt brachial Position Sitting Pulse 70 Pulse Source Pulse Oximeter Temp 97.0 F Temp Source Temporal Artery Scan Pulse Oximetry (%) 97 Oxygen Delivery Method Room Air Intake Visit Reasons: follow up Allergies penicillin V Allergy (Unknown, Verified 12/08/24 13:13) Unknown Medication List - Last Reconciled 12/08/24 by Darlene Magaña MD albuterol sulfate 90 mcg/actuation (ProAir HFA) 2 puffs inhalation Q6H PRN 90 days calcium carbonate-vitamin D3 600 mg-5 mcg (200 unit) (Calcium 600 + D(3)) 600 caps PO DAILY cetirizine (Zyrtec) 10 mg PO DAILY ketoconazole 2% 1 appl topical 2XW montelukast (Singulair) 10 mg PO BEDTIME 90 days multivitamin 1 tab PO DAILY omeprazole 20 mg PO DAILY PRN Tobacco use date assessed: 12/08/24 Fall risk assessment: 2 + Falls in past year Last assessed Fall Risk: 12/08/24 Dental Screening Dental Screen Date: 12/08/24 Did you have a dental visit in the last 12 months?: Yes Did you have a dental problem in the last 6 months where you did not have access to dental care?: No Was dental information given to patient?: Patient has dentist [facility] Medical History Frequency of micturition Frequency of micturition Osteopenia Tubular adenoma of colon MGUS (monoclonal gammopathy of unknown significance) Peripheral vascular disease Knee osteoarthritis Impaired glucose tolerance Obesity (BMI 30-39.9) Hypercholesterolemia Asthma Surgical History History of sinus surgery S/P FINESSE-BSO Family History Father CVD (cardiovascular disease) Mother Stroke High cholesterol Maternal Aunt Ovarian cancer Pancreatic cancer Social History Household Members: Spouse Housing: House Alcohol intake: current Alcohol intake frequency: a few times a month Patient Tobacco Use Status: Never used Tobacco e-Cigarette/Vaping Use: Never Used Second Hand Smoke Exposure: No service: No Current occupational status: retired Sexual orientation: Straight/Heterosexual Gender identity: Female Cognitive needs: No Hearing needs: No Vision needs: Yes Questionnaire PHQ-9 Over the last 2 weeks, how often have you been bothered by any of the following problems? 1. Little interest or pleasure in doing things: not at all 2. Feeling down, depressed, or hopeless: not at all 3. Trouble falling or staying asleep, or sleeping too much: not at all 4. Feeling tired or having little energy: not at all 5. Poor appetite or overeating: not at all 6. Feeling bad about yourself - or that you are a failure or have let yourself or your family down: not at all 7. Trouble concentrating on things, such as reading the newspaper or watching television: not at all 8. Moving or speaking so slowly that other people could have noticed. Or the opposite - being so fidgety or restless that you have been moving around a lot more than usual: not at all 9. Thoughts that you would be better off or of hurting yourself in some way: not at all Total score: 0 Depression Screening Interpretation: Negative Depression Screening Done: Yes Source: Developed by Drs. Roberto Carlos Patel, Rosangela Alcantara, Alejandro Callejas and colleagues, with an educational bogdan from [email or web address] Thrive Questionnaire Date Thrive assessed: 05/18/24 I am a: Patient What is your living situation today?: I have a steady place to live Within the past 12 months, did the food you bought not last and you didn't have the money to get more?: Never true Within the past 12 months, did you worry whether your food would run out before you got money to buy more?: Never true Do you have trouble paying for medicines?: No Do you have trouble getting transportation to medical appointments?: No Do you have trouble paying your heating and electricity bill?: No Do you have trouble taking care of your child, family member or friend?: No Do you have trouble with day-to-day activities such as bathing, preparing meals, shopping, managing finances, etc.?: No Are you currently unemployed and looking for a job?: No Are you interested in more education?: No Please select the resources that you would like help with: None Currently or been in a relationship where the following occur: No concerns reported THRIVE Score: 0 AUDIT C Alcohol Use Questionnaire (AUDIT-C) 1. How often do you have a drink containing alcohol?: 2-3 times a week 2. How many drinks containing alcohol do you have on a typical day when you are drinking?: 1 or 2 3. How often do you have six or more drinks on one occasion?: Never Total Score: 3 MARY JO-7 AMB Questionnaire MARY JO-7 Date MARY JO - 7 assessed: 08/26/24 Feeling nervous, anxious, or on edge: 0 = Not at all Not being able to stop or control worryin = Not at all Worrying too much about different things: 0 = Not at all Trouble relaxin = Not at all Being so restless that it is hard to sit still: 0 = Not at all Becoming easily annoyed or irritable: 0 = Not at all Feeling afraid as if something awful might happen: 0 = Not at all Total MARY JO-7 score (0-4 normal; 5-9 mild; 10-14 moderate; 15-21 severe): 0 Source: Developed by Drs. Roberto Carlos Patel, Rosangela Alcantara, Alejandro Callejas and colleagues, with an educational bogdan from [email or web address]. Physical exam (Primary Care) Vital Signs: Last Vital Signs Temp 97.0 F 12/08/24 13:09 Pulse 70 12/08/24 13:09 BP 140/80 H 12/08/24 13:09 Pulse Ox 97 12/08/24 13:09 Oxygen Delivery Method Room Air 12/08/24 13:09 BMI result Body Mass Index 32.8 Tobacco/Smoking Status: Tobacco use Status Tobacco use date assessed 12/08/24 12/08/24 13:15 Patient Tobacco Use Status Never used Tobacco 12/08/24 13:15 e-Cigarette/Vaping Use Never Used 12/08/24 13:15 PHQ-9: PHQ-9 Score PHQ-9: Total score 0 12/08/24 13:16 Depression Screening Interpretation: Negative Thrive Assessment: Date of Thrive Assessment Date Thrive assessed 05/18/24 12/08/24 13:15 Currently or been in a relationship where the following occur: No concerns reported Const General: alert; No acute distress HENMT Other: impacted cerumn bilateral Eyes Conjunctivae: conjunctivae normal Resp Auscultation: clear to auscultation bilaterally Cardio Rate: regular rate Rhythm: regular rhythm GI Inspection: Yes normal to inspection Extrem General: Yes normal to inspection and No edema Office Procedures Cerumen Removal From which ear canal was the cerumen removed: bilateral Removal: irrigation, otoscope w/curette, cerumen loop/spoon and other Notes: patient tolerated procedure well, no complications and ear canal clear [id number] Irrigation/Lavage Coding Level of Care Code Est Pt Level 4 (60665) Complex EM visit Add On G2211 Diagnoses Obesity (BMI 30-39.9) E66.9 Osteopenia M85.80 Impaired glucose tolerance R73.02 GERD (gastroesophageal reflux disease) K21.9 Knee osteoarthritis M17.10 MGUS (monoclonal gammopathy of unknown significance) D47.2 Hypercholesterolemia E78.00 Mild intermittent asthma without complication J45.20 Asthma complication type: uncomplicated Asthma persistence: intermittent Asthma severity: mild Allergic contact dermatitis L23.9 Mixed incontinence N39.46 Impacted cerumen of both ears H61.23 CPT Codes Office Procedure - CPT: 06255-Jvc Irrigation/Lavage ([id number]) Assessment & Plan Assessment & Plan (1) Obesity (BMI 30-39.9): Code(s): E66.9 - Obesity, unspecified Category: Medical Plan: Diet and exercise (2) Osteopenia: Comment: July 2018, 01/2021, January 2023 Code(s): M85.80 - Other specified disorders of bone density and structure, unspecified site Category: Medical Plan: Discussed about repeating bone density (3) Impaired glucose tolerance: Code(s): R73.02 - Impaired glucose tolerance (oral) Category: Medical Plan: Decrease the amount of carbohydrate intake, pasta, bread, rice and potatoes are all sugar and that is aside from all the sweet stuff, remember that fruits are good but they are Sweet also. (4) GERD (gastroesophageal reflux disease): Code(s): K21.9 - Gastro-esophageal reflux disease without esophagitis Category: Medical Plan: Avoid the foods that causes that usually spicy foods, tomato products, juices, coffee, soda and foods that your sensitive to. After eating do not lie down, allow 3-4 hours before in lie down. And keep the head of bed above 30 degrees to avoid the acid from going up. (5) Knee osteoarthritis: Code(s): M17.10 - Unilateral primary osteoarthritis, unspecified knee Category: Medical Plan: Continue to be active (6) MGUS (monoclonal gammopathy of unknown significance): Comment: Dr. Avelino MCRAE October 2011, IgM high October 2014, last blood work 09/2021 SPEP SFLC, UPEP Alk phos with fractionation Code(s): D47.2 - Monoclonal gammopathy Category: Medical Plan: Patient follows up with [facility] (7) Hypercholesterolemia: Code(s): E78.00 - Pure hypercholesterolemia, unspecified Category: Medical Plan: Avoid fried foods, chicken skin, eggs, butter margarine, pastries and meat. Be it pork or beef they have a lot of cholesterol LDL goal of less than 130 and triglyceride of less than 150 (8) Asthma: Code(s): J45.909 - Unspecified asthma, uncomplicated Category: Medical Qualifiers: Asthma complication type: uncomplicated Asthma persistence: intermittent Asthma severity: mild Qualified Code(s): J45.20 - Mild intermittent asthma, uncomplicated Plan: On albuterol inhaler and montelukast (9) Allergic contact dermatitis: Code(s): L23.9 - Allergic contact dermatitis, unspecified cause Category: Medical (10) Mixed incontinence: Code(s): N39.46 - Mixed incontinence Category: Medical (11) Impacted cerumen of both ears: Code(s): H61.23 - Impacted cerumen, bilateral Category: Medical Plan: irrigation and scoop used TM intact Plan History of Present Illness The patient is an 84-year-old female presenting for a routine follow-up and management of multiple chronic conditions. She has a history of asthma, managed with an albuterol inhaler and montelukast. Her hypercholesterolemia is noted with an LDL level of 135 mg/dL, which has improved over the past year. The patient has impaired glucose tolerance and knee osteoarthritis, which affects her mobility. She also has osteopenia, with the last bone density test conducted in January 2023. She reports an overactive bladder and gastroesophageal reflux disease (GERD), with the latter being managed through lifestyle modifications. The patient has experienced a recent bereavement reaction due to the of her , which has impacted her emotional well-being. Her last complete blood work in September showed normal blood count, electrolytes, and renal function, with a creatinine of 1.09 mg/dL and BUN of 27 mg/dL. Liver function tests, vitamin B12, vitamin D, folic acid, and thyroid levels were all within normal limits. The patient reports ear wax accumulation, which was addressed during the visit. She also experienced contact dermatitis, likely due to exposure to poison oak, and is using a steroid cream for management. Health Maintenance - Mammogram is due for screening purposes. - Discussed repeating bone density test in January 2023. - Recommended flu and COVID vaccinations. Social History - Housing: Patient is planning to move to [place] and is currently managing the sale of her house. - Family Status: Recent bereavement due to the of her . - Exercise: Limited due to fear of injury, but patient engages in activities like weeding. Review of Systems - Respiratory: Reports asthma managed with inhaler and montelukast. - Musculoskeletal: Reports knee osteoarthritis affecting mobility. - Genitourinary: Reports overactive bladder and stress incontinence. - Dermatological: Reports contact dermatitis likely from poison oak exposure. - Neurological: Denies any neurological symptoms. Physical Exam - Ears: Significant ear wax accumulation noted, requiring removal. Results - Labs: Normal blood count, electrolytes, and renal function with creatinine 1.09 mg/dL and BUN 27 mg/dL. - Labs: Normal liver function tests, vitamin B12, vitamin D, folic acid, and thyroid levels. - Labs: LDL cholesterol level at 135 mg/dL. Plan Patient was informed and verbally consented to the use of an ambient scribe for clinic note documentation during this visit. 1. Asthma The patient's asthma is managed with an albuterol inhaler and montelukast, which she should continue using as prescribed. 2. Hypercholesterolemia The patient's LDL cholesterol level is 135 mg/dL, which has shown improvement. The goal is to maintain LDL below 130 mg/dL, and lifestyle modifications should continue to support this. 3. Impaired Glucose Tolerance The patient should continue monitoring her glucose levels and adhere to dietary recommendations to manage impaired glucose tolerance. 4. Knee Osteoarthritis The patient should continue with physical activity as tolerated to manage knee osteoarthritis symptoms and consider physical therapy if symptoms worsen. 5. Osteopenia A repeat bone density test is recommended in January 2023 to monitor osteopenia progression. 6. Overactive Bladder The patient is advised to perform pelvic floor exercises to manage overactive bladder symptoms and consider medication if symptoms persist. 7. Gastroesophageal Reflux Disease (Gerd) The patient should continue lifestyle modifications to manage GERD symptoms and consider medication if symptoms do not improve. 8. Recent Bereavement Reaction The patient is experiencing a bereavement reaction following her 's , and supportive counseling is recommended to help manage emotional distress. 9. Ear Wax Accumulation The patient underwent ear wax removal during the visit and should maintain ear hygiene to prevent recurrence. 10. Contact Dermatitis The patient is using a steroid cream for contact dermatitis, likely due to poison oak exposure, and should continue treatment for one to two weeks. Discussion Notes During the visit, we discussed the management of the patient's chronic conditions, including asthma, hypercholesterolemia, and impaired glucose tolerance. We reviewed the importance of lifestyle modifications and medication adherence. The patient was advised to continue her current asthma medications and to monitor her glucose levels. We also addressed her recent bereavement and recommended supportive counseling. Ear wax removal was performed, and the edelmira ent was instructed on maintaining ear hygiene. We discussed the use of a steroid cream for contact dermatitis and the importance of completing the treatment course. Patient Instructions - Continue using albuterol inhaler and montelukast as prescribed for asthma. - Maintain lifestyle modifications to support cholesterol management. - Monitor glucose levels regularly and follow dietary recommendations. - Engage in physical activity as tolerated for knee osteoarthritis. - Perform pelvic floor exercises for overactive bladder management. - Use steroid cream for contact dermatitis for one to two weeks. - Maintain ear hygiene to prevent wax accumulation. - Schedule mammogram and repeat bone density test in January 2023. - Consider supportive counseling for bereavement. - Get flu and COVID vaccinations as recommended. Medications: New mirabegron ER (Myrbetriq) 25 mg PO DAILY 30 tabs 0RF N39.46 - Mixed incontinence
--- OUTSIDE RECORDS SUMMARY | 2024-12-08 14:33 | XMS_ITS | Clinical Summary ---
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 10/11/2012 Active multivitamin per tablet Take 1 tablet by mouth daily. 05/18/2006 Active naproxen (NAPROSYN) 250 MG tablet Take 1 tablet by mouth daily. 12/15/2013 Active ALBUTEROL SULFATE (PROAIR HFA INHL) Dose: 2 PUFF; Form: Not available; Route: INH; Frequency: Q6H; Directions: Not available; Details: Dispense: 1 Inhaler(s); Date: 02/18/2010 02/18/2010 Active cetirizine (ZYRTEC) 10 MG tablet Take 10 mg by mouth daily. Active montelukast (SINGULAIR) 10 mg tablet Take 1 tablet (10 mg total) by mouth nightly at bedtime. Generic is preferred. 90 tablet 3 12/15/2019 Active Active Problems Problem Noted Date Diagnosed Date B12 deficiency 12/13/2018 Overview (11/29/2020): B12 deficiency 12/09/2018 office visit She had previously been taking B12 1000 MCG per day, and she just opted for no apparent reason. I do not have any record of her previous B12 levels. 12/09/2018 B12 level 637 Office Visit 12/15/19 (Dr. You): Her B12 level was good on 12/09/2018. She has stopped taking a B12 supplement but does get B12 and a multivitamin. Assessment: I will recheck her B12 level today and encouraged her to follow-up with Dr. Magaña regarding this. Assessment & Plan (12/02/2020 10:55 AM EDT): This stable off B12 supplements. Her B12 level on 12/15/19 was 962. Assessment: Her vitamin B12 level is excellent off supplements. I recommend no changes. Assessment & Plan (12/18/2019 10:37 AM EDT): Her B12 level was good on 12/09/2018. She has stopped taking a B12 supplement but does get B12 and a multivitamin. Assessment: I will recheck her B12 level today and encouraged her to follow-up with Dr. Magaña regarding this. Assessment & Plan (12/13/2018 8:49 AM EDT): I will recheck her B12 level today and encouraged her to follow-up with Dr. Magaña regarding this. Alkaline phosphatase elevation 02/21/2016 Overview (11/29/2020): 5. Elevated alkaline phosphatase. She had a previous skeletal survey and informed me that it was negative. Office Visit 12/15/19 (Dr. You): She has no bone pain. There are no recent labs. Assessment: I will recheck her comprehensive metabolic panel and CBC with differential today. Assessment & Plan (11/29/2020 2:39 PM EDT): She is having no bone pain, and her alkaline phosphatase was 69 on 12/15/19. Assessment: I will recheck her comprehensive metabolic panel today. Assessment & Plan (12/18/2019 10:35 AM EDT): She has no bone pain. There are no recent labs. Assessment: I will recheck her comprehensive metabolic panel and CBC with differential today. Assessment & Plan (12/13/2018 8:48 AM EDT): I have no new information. Assessment: She mentioned that she will follow-up regarding this at her visit with Antonio 01/25. Tesha Magaña regarding this. Assessment & Plan (11/19/2017 6:56 PM EDT): I have no new information. Monoclonal gammopathy 11/24/2015 Overview (11/29/2020): Monoclonal gammopathy first detected on 07/02/09. This has been stable. 07/02/09 Abnormal pattern. There is a 0.69 g/dl band in the gamma region, previously identified as an IgM lambda M component. Serum free lambda light chain is increased. Free Clutier Lt Chain 3.3 - 19.4 mg/L 6.4 Free Lambda Lt Chain 5.7 - 26.3 mg/L 38.1 (Abnormally H) Free Clutier Lambda Rat 0.3 - 1.7 0.2 (Abnormally L) 12/21/14 There is a 0.66 g/dl IgM lambda M component in the gamma region. Ref Range 12/21/14 2:54 PM 12/15/13 1:10 PM 10/11/12 12:44 PM Free Clutier Lt Chain 3.3 - 19.4 mg/L 8.5 5.0 <2.7 (Abnormally L) Free Lambda Lt Chain 5.7 - 26.3 mg/L 32.5 (Abnormally H) 24.1 39.0 (Abnormally H) Free Clutier Lambda Rat 0.30 - 1.70 0.26 (Abnormally L) 0.21 (Abnormally L) see commentR, CM Results for AURELIANO FLAHERTY ( ) as of 11/20/2016 14:02 Ref. Range 10/09/2011 12:39 10/11/2012 12:44 12/15/2013 13:10 12/21/2014 14:54 11/22/2015 16:13 Total Protein Latest Ref Range: 6.0 - 8.3 g/dL 6.9 7.2 7.0 7.3 7.3 IgG Latest Ref Range: 614 - 1295 mg/dL 536 (Abnormally L) 603 (Abnormally L) 651 679 637 IgA Latest Ref Range: 69 - 309 mg/dL 85 88 107 101 102 IgM Latest Ref Range: 53 - 334 mg/dL 1371 (Abnormally H) 1452 (Abnormally H) 1555 (Abnormally H) 1414 (Abnormally H) 1457 (H) IEP Unknown see comment see comment see comment see comment SPEP Unknown see comment see comment see comment see comment Abnormal pattern.... Clutier FLC (mg/L) Latest Ref Range: 3.3 - 19.4 mg/L 4.4 <2.7 (Abnormally L) 5.0 8.5 8.6 Lambda Free Light Chains (mg/L) Latest Ref Range: 5.7 - 26.3 mg/L 34.1 (Abnormally H) 39.0 (Abnormally H) 24.1 32.5 (Abnormally H) 31.8 (H) Free Clutier/Lamda Ratio Latest Ref Range: 0.30 - 1.70 0.1 (Abnormally L) see comment 0.21 (Abnormally L) 0.26 (Abnormally L) 0.27 (L) 12/09/16 Below are the results from your serum protein electrophoresis, quantitative immunoglobulins and immunofixation electrophoresis from 11/20/16. For comparison, I included the results from your previous blood test on 11/22/15 and 12/21/14. Overall, there has been miniscule change in the serum IgM level, the IgM lambda paraprotein and the serum free light chains. This is good news, as it indicates that your paraprotein level is stable. We do not need to recheck this for one year. Resulted Orders SPEP panel ([facility]) Result Value Ref Range Total Protein 7.4 6.0 - 8.3 g/dL IMMUNOGLOBULIN G 618 614 - 1295 mg/dL IgA 101 69 - 309 mg/dL IMMUNOGLOBULIN M 1358 (H) 53 - 334 mg/dL SPEP Abnormal pattern Free light chains, serum ([facility], [facility], [facility], [facility], [facility], [facility], [facility]) Result Value Ref Range FREE KAPPA LT CHAIN 6.9 3.3 - 19.4 mg/L FREE LAMBDA LT CHAIN 36.8 (H) 5.7 - 26.3 mg/L FREE KAPPA LAMBDA RAT 0.19 (L) 0.30 - 1.70 IMMUNOFIXATION ONLY Result Value Ref Range IMMUNOFIXATION There is a 0.72 g/dl IgM lambda M component in the gamma region. 01/09/2018 letter to the patient Dear Ms. Aureliano Flaherty: Below are the results from your recent visit: Resulted Orders SPEP panel Result Value Ref Range Total Protein 7.2 6.0 - 8.3 g/dL IMMUNOGLOBULIN G 739 614 - 1,295 mg/dL IgA 110 69 - 309 mg/dL IMMUNOGLOBULIN M 1,286 (H) 53 - 334 mg/dL SPEP Abnormal pattern. There is a 0.70 g/dl band in the gamma region, previously identified as an IgM lambda M component. Free light chains, serum Result Value Ref Range FREE KAPPA LT CHAIN 7.3 3.3 - 19.4 mg/L FREE LAMBDA LT CHAIN 32.3 (H) 5.7 - 26.3 mg/L FREE KAPPA LAMBDA RAT 0.23 (L) 0.30 - 1.70 For comparison, I included your previous measurements, the below. As you can see, the serum IgM level and the IgM lambda paraprotein have not increased. The serum lambda free light chains have also not changed. This is all good news. Resulted Orders SPEP panel ([facility]) Result Value Ref Range Total Protein 7.4 6.0 - 8.3 g/dL IMMUNOGLOBULIN G 618 614 - 1295 mg/dL IgA 101 69 - 309 mg/dL IMMUNOGLOBULIN M 1358 (H) 53 - 334 mg/dL SPEP Abnormal pattern Free light chains, serum ([facility], [facility], [facility], [facility], [facility], [facility], [facility]) Result Value Ref Range FREE KAPPA LT CHAIN 6.9 3.3 - 19.4 mg/L FREE LAMBDA LT CHAIN 36.8 (H) 5.7 - 26.3 mg/L FREE KAPPA LAMBDA RAT 0.19 (L) 0.30 - 1.70 IMMUNOFIXATION ONLY Result Value Ref Range IMMUNOFIXATION There is a 0.72 g/dl IgM lambda M component in the gamma region. Below are the results from your blood tests from 11/22/15. Resulted Orders SPEP panel ([facility] Only) Result Value Ref Range SERUM TOTAL PROTEIN 7.3 6.0 - 8.3 g/dL IMMUNOGLOBULIN G 637 614 - 1295 mg/dL IMMUNOGLOBULIN A 102 69 - 309 mg/dL IMMUNOGLOBULIN M 1457 (H) 53 - 334 mg/dL SERUM PROTEIN EP Abnormal pattern. There is a 0.69 g/dl band in the gamma region, previously identified as an IgM lambda M component. Free light chains, serum ([facility] Only) Result Value Ref Range FREE KAPPA LT CHAIN 8.6 3.3 - 19.4 mg/L FREE LAMBDA LT CHAIN 31.8 (H) 5.7 - 26.3 mg/L FREE KAPPA LAMBDA RAT 0.27 (L) 0.30 - 1.70 By comparison, your blood tests on 12/21/14 are summarized below. (These results were only slightly different by comparison to 12/15/13.) We checked how well your liver was functioning. Details as follows: Total Protein: 7.3 (Normal Range = 6.0 to 8.3) Details of other chemistry tests as follows: SPEP: Abnormal pattern Banding present. Serum free lambda light chains are increased. Ig (Normal Range = 614 to 1295) IgA: 101 (Normal Range = 69 to 309) IgM: 1414 (Normal Range = 53 to 334): Out of Range IEP: There is a 0.66 g/dl IgM lambda M component in the gamma region. Clutier FLC (mg/L): 8.5 (Normal Range = 3.3 to 19.4) Lambda Free Light Chains (mg/L): 32.5 (Normal Range = 5.7 to 26.3): Out of Range Free Clutier/Lamda Ratio: 0.26 (Normal Range = 0.30 to 1.70): Out of Range Sincerely, Real You MD 12/09/2018 office visit Aureliano remains asymptomatic. Office Visit 12/15/19 (Dr. You): She remains asymptomatic in this regard with no back pain or bone pain. Assessment: I will recheck her SPEP and serum free light chains and continue to monitor them annually. Assessment & Plan (11/29/2020 2:40 PM EDT): 12/15/19: free kappa light chain 10.4, free lambda light chain 43.8, and free kappa lambda ratio 0.24 12/15/19: total protein 7.3, IgG 747, IgA 104, IgM 1224 This remains stable. She takes naprosyn for occasional back pain which she attributes to moving boxes recently. She is not having bone pain. Assessment: I will recheck her SPEP and serum free light chains today and continue to monitor this annually. Assessment & Plan (12/18/2019 10:34 AM EDT): She remains asymptomatic in this regard with no back pain or bone pain. Assessment: I will recheck her SPEP and serum free light chains and continue to monitor them annually. Assessment & Plan (12/13/2018 8:45 AM EDT): I will recheck her SPEP and serum free light chains continue to monitor her SPEP and serum free light chains annually. Assessment & Plan (11/19/2017 6:56 PM EDT): This problem was stable as oF 11/20/16. She is asymptomatic. Assessment: I will recheck her SPEP and serum free light chains today.. Assessment & Plan (11/20/2016 8:20 PM EDT): This problem was stable as of 11/22/15. She is asymptomatic. Assessment: I will recheck her SPEP and serum free light chains. Assessment & Plan (11/25/2015 12:11 AM EDT): This has remained stable but will be rechecked today. Urinary tract infection 11/24/2015 Overview (11/24/2015): 6. Recent UTIs. Assessment & Plan (02/21/2016 12:33 PM EST): No new information. Cerumen debris on tympanic membrane of both ears 11/24/2015 Overview (11/29/2020): 8. Bilateral cerumen impaction. This has been removed in the past with a curette. Office Visit 12/15/19 (Dr. You): She tried using Debrox but only a few times. On examination today she has moderate wax buildup bilaterally that I could not remove. Assessment: I suggested she use Debrox regularly for 7-10 days. Assessment & Plan (12/02/2020 10:53 AM EDT): She has been using Debrox and washing her ears in the shower. She has moderate wax buildup today. Assessment: Her ear canals are narrow and difficult to clean. She is planning to have her ears flushed out soon. Assessment & Plan (12/18/2019 10:33 AM EDT): She tried using Debrox but only a few times. On examination today she has moderate wax buildup bilaterally that I could not remove. Assessment: I suggested she use Debrox regularly for 7-10 days. Assessment & Plan (12/13/2018 8:47 AM EDT): Aureliano had small amount of cerumen buildup again today which I was able to partially remove with a curette. Assessment: I advised her to use Debrox as prescribed daily for 1 week. I also advised her to wash her ears with warm soapy water in the shower on a daily basis until they are squeaky clean. Assessment & Plan (11/19/2017 6:53 PM EDT): She had only mild cerumen buildup today. Assessment & Plan (11/20/2016 8:19 PM EDT): Aureliano has a moderate accumulation of wax again today. This was removed with a curette. Assessment: I again advised Aureliano to wash her years with warm soapy water on a daily basis. Assessment & Plan (11/25/2015 12:00 AM EDT): This was removed again today with a curette. I have advised Deay to wash her ears every day with warm, soapy water. Osteoporosis 10/11/2012 Overview (11/20/2016): Osteoporosis 4. Osteoporosis. No new information. She has no history of kidney stones. She had a bone densitometry done outside [place] [facility] [place]. Assessment & Plan (12/02/2020 10:54 AM EDT): She remains on a calcium and vitamin D supplement and has had no recent fractures. Assessment & Plan (11/20/2016 8:21 PM EDT): This is followed by her local physician. She remains on a calcium/vitamin D supplement. Asthma 12/05/2011 Overview (11/29/2020): Asthma; Occupational asthma 2. Asthma a. Non-allergic b. With chronic rhinosinusitis This is very stable off medications except for Singulair. 11/19/17 office visit This remains very stable on Singulair 10 mg daily with only as needed use of Advair 250/50. 12/09/18 office visit Her asthma has been fine. She has not needed to use Advair or Singulair and is just using albuterol as needed. Office Visit 12/15/19 (Dr. You): In general she is doing well. Changes in weather because shortness of breath and some phlegm production. She just renewed her montelukast prescription and is taking it daily. She is off Advair. Exposure to wood-burning stove provokes coughing and irritates her nose. Assessment: I recommend no change in treatment. Assessment & Plan (12/02/2020 10:59 AM EDT): She uses Advair as needed, however not often. She notes that she has needed to use her Advair inhaler more often due to construction at her neighbor's home. She received a letter from [facility] about 6 months ago warning about depression and suicide risk from Singulair. She stopped Singulair as result of the letter. Since then, she has noticed some increased in post nasal drainage and some breathlessness moving boxes. She has not needed to use albuterol. She feels that her asthma is well controlled with just as needed Advair. Assessment: Aureliano is doing fairly well, but because of her symptoms I recommend restarting Singulair 10 mg daily. I reassured her that the risk of depression and suicide was primarily in patients with a history of these problems. I feel she is safe to go back on Singulair. Assessment & Plan (12/18/2019 10:37 AM EDT): In general she is doing well. Changes in weather because shortness of breath and some phlegm production. She just renewed her montelukast prescription and is taking it daily. She is off Advair. Exposure to wood-burning stove provokes coughing and irritates her nose. Assessment: I recommend no change in treatment. Assessment & Plan (12/13/2018 8:43 AM EDT): On examination, her chest is clear. Assessment: Aureliano is doing very well, and I recommend no change in treatment. I renewed her Singulair prescription at her request. Assessment & Plan (11/19/2017 6:53 PM EDT): This remains very stable on Singulair 10 mg daily with only as needed use of Advair 250/50. Assessment & Plan (11/20/2016 8:18 PM EDT): This has been very stable. She was using Singulair 10 MG daily on a regular basis but stopped it 2 months ago and has had no problems. She only uses Advair 250/50 as needed. Assessment: Aureliano is doing very well, and it is fine if she stays off Singulair. She should resume it if her symptoms recur. Assessment & Plan (11/25/2015 12:05 AM EDT): Her asthma remains very stable just using montelukast. Her PCP gave her an albuterol inhaler in February 2015, but she never needed it. Assessment: Her asthma is stable. I recommend no change in her medications. Chronic sinusitis 12/05/2011 Overview (11/29/2020): Chronic sinusitis 1. Chronic rhinosinusitis with polypoid features a. Non-allergic (except for maple and pecan tree) b. With extensive abnormalities of the sinus CT scan c. With possible non-IgE fungal hypersensitization d. With probable asthma e. With modest eosinophilia f. with monoclonal paraproteinemia g. with recent acute infection, resolved with Z-Lio Arueliano is doing great except for her recent sinus infection. I recommend extending her treatment with a second Z-Lio. Otherwise, I recommend no change in her treatment. She has resumed use of Singulair. She received Pneumovax in 2007 and has not received Prevnar 13. Normal ophthalmologic examination in November,. 11/19/17 office visit Aureliano has only used the concentrated budesonide rinse rarely primarily in the winter when she feels a cold coming on. It really helps to prevent or minimize her colds. Her only symptom is that she sneezes frequently . She has been using Zyrtec or Benadryl recently for this. This year, she began experiencing increased postnasal drainage when she and her returned to [place] from [place] in 07/24. She was doing very well in [place]. In [place] during the hot, humid weather, she had increased postnasal drainage and nasal stuffiness. She has not really been using the concentrated budesonide rinse or the Astelin much at all. She would prefer to use a treatment that would be quick and effective. On examination, there is moderate enlargement of the left inferior turbinate. Assessment: Although one option is for Aureliano to use the concentrated budesonide rinse and Astelin more regularly, she is interested to try something different. I suggest trying the XHANCE 1 spray per nostril twice daily. This would replace the concentrated budesonide rinse. I still recommend that she use Astelin 2 sprays per nostril daily as needed for sneezing and nasal stuffiness. If she prefers the concentrated budesonide rinse to XHANCE, I advised her to let me know and I will send in a new prescription for it. 12/09/18 office visit At her last visit, she was interested to try XHance. I prescribed it, but she is not using it now. She is no longer using Astelin or the concentrated budesonide rinse. She is just using cetirizine 10 mg daily and saline. She is doing fine. Her symptoms can be triggered by smoke exposure or long airplane flights such as when she and her recently went to [place]. Office Visit 12/15/19 (Dr. You): Aureliano has some postnasal drainage but just renewed her montelukast which is helpful. She takes Zyrtec or Claritin daily and otherwise has had no problems with her sinuses. Assessment: I recommend no change in treatment. If needed, she could always restart the XHance or concentrated budesonide rinse. Assessment & Plan (12/02/2020 11:00 AM EDT): She recently stopped taking Singulair and has had increased post nasal drainage. She remains on Zyrtec 10 mg daily. She occasionally wakes with congestion in one nostril or the other. She was well controlled on Singulair and Zyrtec. Assessment: She is doing very well, but because of her increased postnasal drainage I recommend restarting Singulair 10 mg daily. Assessment & Plan (12/18/2019 10:31 AM EDT): Aureliano has some postnasal drainage but just renewed her montelukast which is helpful. She takes Zyrtec or Claritin daily and otherwise has had no problems with her sinuses. Assessment: I recommend no change in treatment. If needed, she could always restart the XHance or concentrated budesonide rinse. Assessment & Plan (12/13/2018 8:41 AM EDT): On examination, Aureliano's nose is clear. Assessment: I recommend no change in treatment. If needed, she could always restart the XHance or concentrated budesonide rinse. Assessment & Plan (11/19/2017 6:52 PM EDT): Aureliano has only used the concentrated budesonide rinse rarely primarily in the winter when she feels a cold coming on. It really helps to prevent or minimize her colds. Her only symptom is that she sneezes frequently . She has been using Zyrtec or Benadryl recently for this. This year, she began experiencing increased postnasal drainage when she and her returned to [place] from [place] in 07/24. She was doing very well in [place]. In [place] during the hot, humid weather, she had increased postnasal drainage and nasal stuffiness. She has not really been using the concentrated budesonide rinse or the Astelin much at all. She would prefer to use a treatment that would be quick and effective. On examination, there is moderate enlargement of the left inferior turbinate. Assessment: Although one option is for Aureliano to use the concentrated budesonide rinse and Astelin more regularly, she is interested to try something different. I suggest trying the XHANCE 1 spray per nostril twice daily. This would replace the concentrated budesonide rinse. I still recommend that she use Astelin 2 sprays per nostril daily as needed for sneezing and nasal stuffiness. If she prefers the concentrated budesonide rinse to XHANCE, I advised her to let me know and I will send in a new prescription for it. Assessment & Plan (11/20/2016 8:17 PM EDT): Aureliano has only used the concentrated budesonide rinse rarely primarily in the winter when she feels a cold coming on. It really helps to prevent or minimize her colds. Her only symptom is that she sneezes frequently . She has been using Zyrtec or Benadryl recently for this. She had one sinus infection over the past winter treated with an antibiotic with resolution. Assessment: I advised Aureliano to continue using the concentrated budesonide rinse on an as- needed basis. For her sneezing, my recommendation is that she use either Zyrtec 10 MG daily or Odalys 180 MG daily. I recommended that she avoid Benadryl, because it has effects on cognition and operating heavy machinery. For the nasal itching and congestion, I prescribed Astelin 2 sprays per nostril daily. Assessment & Plan (11/25/2015 12:07 AM EDT): She had been using the concentrated budesonide sinus rinse but lately has only used it once per week. She has been coughing and sneezing for the past few weeks. The weather has been hot and dry. She feels she is allergic to black walnut trees, and the black walnuts fall off the trees in her yard in the fall and bother her. She had one sinus infection in February,. Assessment: Because of Deya's increased symptoms, I advised her to use the concentrated budesonide sinus rinse once per nostril daily, or as needed. I recommended a booster Pneumovax immunization today and Prevnar 13 next year through her PCP. Immunizations Immunization Administration Dates Next Due COVID-19 (Pre-12/29) Moderna Vaccine, mRNA, PF 06/25/2021 Influenza Nasal, Unspecified Formulation 12/15/2013(Deferred: Patient Decision - , Ordered By: [id number]) Influenza, Unspecified Formulation 12/04/2008 Influenza, whole 12/15/2019 Pneumococcal polysaccharide PPSV23 11/22/2015, Family History Medical History Relation Comments Allergic rhinitis Brother Heart attack Father 1 unknown for cert ain CV disease Father 2 Osteoporosis Mother CV disease Sibling Relation Status Comments Brother blood clot durin g hip surgery Daughter 1 Alive Daughter 2 Alive Father 1 Father 2 Mother Sibling Son Alive Social History Tobacco Use Types Packs/Day Years Used Date Smoking Tobacco: Never Smokeless Tobacco: Never Education Answer Date Recorded Are you interested in more education? Not on savanna e 07/05/2022 Are you concerned about learning? Not on file 07/05/2022 No 07/05/2022 No 07/05/2022 Digital Access Answer Date Recorded No 08/03/2022 No 08/03/2022 No 08/03/2022 Reliable internet access at home? Not on file 08/03/2022 Device with a working camera? Not on file Comments Unknown Sex and Gender Information Value Date Recorded Sex Assigned at Not on file Legal Sex Female 5:01 PM EST Gender Identity Not on file Sexual Orientation Not on file Last Filed Vital Signs Vital Sign Reading Time Taken Comments Blood Pressure 133/79 09/17/2021 1:50 PM EDT Pulse 88 09/17/2021 1:50 PM EDT Temperature - - Respiratory Rate - - Oxygen Saturation 98% 09/17/2021 1:50 PM EDT Inhaled Oxygen Concentration - - Weight 88 kg (194 lb) 09/17/2021 1:50 PM EDT Height 160 cm (5' 3 ) 09/17/2021 1:50 PM EDT Body Mass Index 34.37 09/17/2021 1:50 PM EDT Plan of Treatment Health Maintenance Due Date Last Done Comments Adult Td,Tdap Booster 1940 DEPRESSION SCREENING 1952 ZOSTER VACCINES (1 of 2) 1990 OSTEOPOROSIS SCREENING INITIAL (ONE-TIME) 2005 RSV VACCINE (1 - 1-dose 75+ series) 2015 INFLUENZA VACCINE (#1) 2024 , 12/15/2019, 12/02/2019, Additional history exists COVID-19 VACCINE (2024- season) 2024 06/25/2021, 01/25/2021 PNEUMOCOCCAL VACCINES (50+ years) Completed 01/13/2018, 08/17/2017, 11/22/2015, Additional history exists HEPATITIS A VACCINES Aged Out No long er eligible based on patient's age to complete this topic HIB VACCINES Aged Out No longer eligi ble based on patient's age to complete this topic MENINGOCOCCAL VACCINES (ACWY) Aged Out No longer eligible based on patient's age to complete this topic MENINGOCOCCAL VACCINES (B) Aged Out N o longer eligible based on patient's age to complete this topic Medical Devices Not on file Insurance [facility] MEDICARE PPO BLUE REPLACEMENT [facility] MEDICARE PPO BLUE REPLACEMENT [address] [address] MEDICARE PPO BLUE REPLACEMENT [place] MEDIC[place] P[place] BLUE REPLACEMENT Care Teams Spring Fitter Helper Relationship Specialty Start Date End Date Darlene Magaña MD [address] [place] [address] [address] [place] [phone] PCP - General Internal Medicine 12/15/13 Additional Source Comments The information contained in this document represents components of the legal health record. It is not the complete legal health record.[facility]ed With [facility]
--- OUTSIDE RECORDS SUMMARY | 2024-12-08 14:33 | XMS_ITS | Patient Health Record ---
Author Organization [facility] [place] Address [address] [facility] [place] [address] Care Team Providers Care Fish Net Maker Name Role Phone Darlene Magaña Primary Care Provider Bhanu Amaya Unavailable [phone] Allergies Allergen (clinical drug ingredient) Drug/Non Drug [...] in the even ing Orally Once a day; Duration: 30 day(s) PRN Active ZyrTEC Allergy PRN Activ e Multivitamin Active Social History Tobacco use other than smoking: Question Answer Notes Are you an other tobacco user? No Problems Problem Type SNOMED Code ICD Code Onset Dates Problem Status W/U Status Risk Notes Problem Acquired hallux valgus (18221725) Hallux valgus (acquired), right foot (M20.11) Active confirmed Plan Of Treatment Pending Test Test Name Order Date X ray : Ankle, left 3V 11/15/2012 X ray : Foot, right 3V 11/15/2012 [id number] 09/25/2014 57204- Debride <25 sq cm 10/09/2014 20743- Debride <25 sq cm 11/09/2014 28253 I&D ABSCESS- SIMPLE,SINGLE 015 Insurance Providers Payer Name Payer Address Payer Phone Subscriber Number Group Number Insured Name Patient Relationship to Insured Coverage Start Date Coverage End Date [facility] 65 Medicare Preferred [address] [place] [address] [id number] Dilia Ascencio Self - patient is the insured Medical (General) History Medical History History ICD Code asthma osteopenia mumps measles chicken pox monoclonal gamopathy Surgical History Surgery Date(Month/Year) sinus surgery hysterectomy 03/1990
--- OUTSIDE RECORDS SUMMARY | 2024-12-08 14:33 | XMS_ITS | Patient Health Record ---
Author Organization [facility] Address [address] [place] [address] Care Team Providers Care Production Control Analyst Name Role Phone Darlene Magaña MD Primary Care Provider Roberto Carlos Lim [phone] Allergies Allergen (clinical drug ingredient) Drug/Non Drug [...] Problem Status W/U Status Risk Notes Problem 388374802 History of adenomatous polyp of colon (Z86.010) Active confirmed Problem Screening for malignant neoplasm of rectum (540299496) Encounter for screening for malignant neoplasm of rectum (Z12.12) Active confirmed Problem 507593053 Preprocedural examination (Z01.818) Active confirmed Plan Of Treatment Future Test Test Name Order Date COLONOSCOPY 06/18/2016 Insurance Providers Payer Name Payer Address Payer Phone Subscriber Number Group Number Insured Name Patient Relationship to Insured Coverage Start Date Coverage End Date [facility] [address] [place], [place] [id number] AURELIANO FLAHERTY Self - patient is the insured Medical (General) History Medical History History ICD Code Colonoscopy 12-02-2004 and with removal of small tubular adenomas; mild sigmoid diverticulosis was noted Denies OR,DM,CVA,renal disease Asthma Surgical History Surgery Date(Month/Year) FINESSE Sinus surgery Oral surgery
== END 2024-12-08 14:04 | disposition home or self-care (01) ==
LOC: HO.HMCH 13:07
PROVIDERS: PCP Internal Medicine; Visit Provider Internal Medicine
DX: K21.9 Gastro-esophageal reflux disease without esophagitis (principal); E66.9 Obesity, unspecified; Z68.32 Body mass index [BMI] 32.0-32.9, adult; R73.02 Impaired glucose tolerance (oral); M85.80 Other specified disorders of bone density and structure, unspecified site; M17.10 Unilateral primary osteoarthritis, unspecified knee; D47.2 Monoclonal gammopathy; E78.00 Pure hypercholesterolemia, unspecified; J45.20 Mild intermittent asthma, uncomplicated; L23.9 Allergic contact dermatitis, unspecified cause; N39.46 Mixed incontinence; H61.23 Impacted cerumen, bilateral

== ENCOUNTER → 2024-12-08 13:06 | Outpatient (BNVA) | payer MEDICARE, SELFPAY | PROVIDERS: PCP Internal Medicine; Visit Provider Internal Medicine | DX: H61.23 Impacted cerumen, bilateral (principal); E66.9 Obesity, unspecified; M85.80 Other specified disorders of bone density and structure, unspecified site; R73.02 Impaired glucose tolerance (oral); K21.9 Gastro-esophageal reflux disease without esophagitis; M17.10 Unilateral primary osteoarthritis, unspecified knee; D47.2 Monoclonal gammopathy; E78.00 Pure hypercholesterolemia, unspecified; J45.20 Mild intermittent asthma, uncomplicated; L23.9 Allergic contact dermatitis, unspecified cause; N39.46 Mixed incontinence; J45.909 Unspecified asthma, uncomplicated; R73.01 Impaired fasting glucose; N32.81 Overactive bladder | CPT/HCPCS: 69210; 96127; 99212 ==

== ENCOUNTER → 2024-12-27 15:45 | Outpatient (BNV) | payer MEDICARE, SELFPAY | PROVIDERS: PCP Internal Medicine; Visit Provider Internal Medicine | DX: Z12.31 Encounter for screening mammogram for malignant neoplasm of breast (principal) | CPT/HCPCS: 77063; 77067 ==

== ENCOUNTER 2024-12-27 15:49 | Outpatient (REF) | payer MEDICARE, SELFPAY ==
--- OUTSIDE RECORDS SUMMARY | 2024-12-27 20:50 | XMS_ITS | Patient Health Record ---
Author Organization [facility] [place] Address [address] [facility] [place] [address] Care Team Providers Care Do All Operator Name Role Phone Darlene Magaña Primary Care Provider Bhanu Lo Unavailable [phone] Allergies Allergen (clinical drug ingredient) Drug/Non Drug [...] Status Risk Notes Problem Acquired hallux valgus (76042077) Hallux valgus (acquired), right foot (M20.11) Active confirmed Plan Of Treatment Pending Test Test Name Order Date X ray : Ankle, left 3V 11/15/2012 X ray : Foot, right 3V 11/15/2012 [id number] 09/25/2014 91559- Debride <25 sq cm 10/09/2014 82144- Debride <25 sq cm 11/09/2014 49788 I&D ABSCESS- SIMPLE,SINGLE 015 Insurance Providers Payer Name Payer Address Payer Phone Subscriber Number Group Number Insured Name Patient Relationship to Insured Coverage Start Date Coverage End Date [employer] 65 Medicare Preferred [address] [place] [address] [id number] Dilia Ascencio Self - patient is the insured Medical (General) History Medical History History ICD Code asthma osteopenia mumps measles chicken pox monoclonal gamopathy Surgical History Surgery Date(Month/Year) sinus surgery hysterectomy 03/1990
--- OUTSIDE RECORDS SUMMARY | 2024-12-27 20:51 | XMS_ITS | Clinical Summary ---
Author Organization [facility] Address [address] [place] [address] Phone Care Team Providers Care Shore Working Supervisor Name Role Phone Darlene Magaña MD Primary Care Provider [phone] Allergies Active Allergy Reactions Criticality Noted Date [...] and encouraged her to follow-up with Dr. Maagña regarding this. Alkaline phosphatase elevation 02/21/2016 Overview [...] free lambda light chain is increased. Free [place] Lt Chain 3.3 - 19.4 mg/L 6.4 Free Lambda Lt Chain 5.7 - 26.3 mg/L 38.1 (Abnormally H) Free [place] Lambda Rat 0.3 - 1.7 0.2 (Abnormally L) 12/21/14 There is a 0.66 g/dl IgM lambda M component in the gamma region. Ref Range 12/21/14 2:54 PM 12/15/13 1:10 PM 10/11/12 12:44 PM Free [place] Lt Chain 3.3 - 19.4 mg/L 8.5 5.0 <2.7 (Abnormally L) Free Lambda Lt Chain 5.7 - 26.3 mg/L 32.5 (Abnormally H) 24.1 39.0 (Abnormally H) Free [place] Lambda Rat 0.30 - 1.70 0.26 (Abnormally [...] comment see comment see comment Abnormal pattern.... [place]am FLC (mg/L) Latest Ref Range: 3.3 - 19.4 mg/L 4.4 <2.7 (Abnormally L) 5.0 8.5 8.6 Lambda Free Light Chains (mg/L) Latest Ref Range: 5.7 - 26.3 mg/L 34.1 (Abnormally H) 39.0 (Abnormally H) 24.1 32.5 (Abnormally H) 31.8 (H) Free [place]/Lamda Ratio Latest Ref Range: 0.30 - 1.70 [...] serum (BW, [facility], [facility], [facility], [facility], [facility], [facility]) Result Value Ref Range FREE KAPPA [...] all good news. Resulted Orders SPEP panel ([facility]) Result Value Ref Range Total Protein 7.4 6.0 - 8.3 g/dL IMMUNOGLOBULIN G 618 614 - 1295 mg/dL IgA 101 69 - 309 mg/dL IMMUNOGLOBULIN M 1358 (H) 53 - 334 mg/dL SPEP Abnormal pattern Free light chains, serum ([facility], [facility], DF, MG, [facility], [facility], [facility]) Result Value Ref Range FREE KAPPA [...] tests from 11/22/15. Resulted Orders SPEP panel ([facility] Only) Result Value Ref Range SERUM TOTAL [...] lambda M component in the gamma region. Upham FLC (mg/L): 8.5 (Normal Range = 3.3 to 19.4) Lambda Free Light Chains (mg/L): 32.5 (Normal Range = 5.7 to 26.3): Out of Range Free Uph[place]/Lamda Ratio: 0.26 (Normal Range = 0.30 to [...] today with a curette. I have advised Deya to wash her ears every day with warm, soapy water. Osteoporosis 10/11/2012 Overview (11/20/2016): Osteoporosis 4. Osteoporosis. No new information. She has no history of kidney stones. She had a bone densitometry done outside of [facility] approximately 2014. Assessment & Plan (12/02/2020 10:54 [...] neighbor's home. She received a letter from [facility] about 6 months ago warning about depression [...] with recent acute infection, resolved with Z-Lio Aureliano is doing great except for her recent [...] drainage when she and her returned to [place] from [place] in 07/24. She was doing very well in [place]. In [place] during the hot, humid weather, she had [...] when she and her recently went to [place]. Office Visit 12/15/19 (Dr. You): Aureliano has [...] drainage when she and her returned to [place] from [place] in 07/24. She was doing very well in [place]. In [place] during the hot, humid weather, she had [...] 12/15/2013(Deferred: Patient Decision - , Ordered By: [id number]) Influenza, Unspecified Formulation 12/04/2008 Influenza, whole 12/15/2019 [...] topic Medical Devices Not on file Insurance [facility] MEDICARE PPO BLUE REPLACEMENT [facility] MEDICARE PPO BLUE RE[place] [address] [place] [address] MEDICARE PPO BLUE REPLACEMENT [place] MEDICARE PPO BLUE REPLACEMENT Care Teams Shore Working Supervisor Relationship Specialty Start Date End Date Darlene Magaña MD [address] [place] [address] Drive [address] [place] [phone] PCP - General Internal Medicine 12/15/13 Additional Source Comments The information contained in this document represents components of the legal health record. It is not the complete legal health record.[facility]
--- OUTSIDE RECORDS SUMMARY | 2024-12-27 20:51 | XMS_ITS | Patient Health Record ---
Author Organization [facility] Address [address] [place] [address] Care Team Providers Care Residential Leasing Manager Name Role Phone Po Darlene HAMILTON Primary Care Provider Roberto Carlos Lim [phone] Allergies Allergen (clinical drug ingredient) Drug/Non Drug [...] Problem Status W/U Status Risk Notes Problem History of adenomatous polyp of colon (464030254) History of adenomatous polyp of colon (Z86.010) Active confirmed Problem Screening for malignant neoplasm of rectum (858337094) Encounter for screening for malignant neoplasm of rectum (Z12.12) Active confirmed Problem Preprocedural examination (090116883328366) Preprocedural examination (Z01.818) Active confirmed Plan Of Treatment Future Test Test Name Order Date COLONOSCOPY 06/18/2016 Insurance Providers Payer Name Payer Address Payer Phone Subscriber Number Group Number Insured Name Patient Relationship to Insured Coverage Start Date Coverage End Date [facility] [address] [place], [place] [id number] REYNOLDAURELIANO Self - patient is the insured Medical (General) History Medical History History ICD Code Colonoscopy 12-02-2004 and with removal of small tubular adenomas; mild sigmoid diverticulosis was noted Denies [place],DM,CVA,renal disease Asthma Surgical History Surgery Date(Month/Year) FINESSE Sinus surgery Oral surgery
== END 2024-12-27 15:50 | disposition home or self-care (01) ==
LOC: HO.MAMMO 15:49
PROVIDERS: PCP Internal Medicine; Visit Provider Internal Medicine
DX: Z12.31 Encounter for screening mammogram for malignant neoplasm of breast (principal)
CPT/HCPCS: 77063; 77067

== ENCOUNTER 2025-01-16 15:12 | Outpatient (AMB) | payer MEDICARE, SELFPAY ==
[2025-01-16 15:13] VITALS: BP 128/74; PULSE 81; TEMP 36.4; O2SAT 100; BMI 33.6
--- NOTE | 2025-01-16 15:13 | MHC.OFFWIV ---
Intake Vital Signs 01/16/25 15:13 Height 5 ft 4 in Weight 196 lb BMI 33.6 BP 128/74 Blood Pressure Location Lt brachial Position Sitting Pulse 81 Pulse Source Pulse Oximeter Temp 97.5 F Temp Source Oral Pulse Oximetry (%) 100 Oxygen Delivery Method Room Air Intake Visit Reasons: EP Left leg pain Intake Note: pt presents with left inferior medial knee pain for Patient Tobacco Use Status: Never used Tobacco Allergies penicillin V Allergy (Unknown, Verified 01/16/25 15:25) Unknown Do you need a note to return to daycare/school/sports/work: No HPI HPI Comments History of Present Illness Details 84 y/o Female patient presents to the walk-in clinic with complaints of left knee and lower leg pain for the past 5 days. She reports a history of osteoarthritis. States that she has been lifting heavy furniture and boxes while preparing to move to [place]. Denies any direct injury or trauma to the knee. Reports pain with bearing weight, standing, and walking. She has been using OTC pain medications with minimal relief. [facility] Medical History Frequency of micturition Frequency of micturition Osteopenia Tubular adenoma of colon MGUS (monoclonal gammopathy of unknown significance) Peripheral vascular disease Knee osteoarthritis Impaired glucose tolerance Obesity (BMI 30-39.9) Hypercholesterolemia Asthma Surgical History History of sinus surgery S/P FINESSE-BSO Family History Father CVD (cardiovascular disease) Mother Stroke High cholesterol Maternal Aunt Ovarian cancer Pancreatic cancer Social History Household Members: Spouse Housing: House Alcohol intake: current Alcohol intake frequency: a few times a month Patient Tobacco Use Status: Never used Tobacco e-Cigarette/Vaping Use: Never Used Second Hand Smoke Exposure: No service: No Current occupational status: retired Sexual orientation: Straight/Heterosexual Gender identity: Female Cognitive needs: No Hearing needs: No Vision needs: Yes Review of Systems Const All systems reviewed & are unremarkable except as noted in HPI and below Physical Exam Vital Signs: Last Vital Signs Temp 97.5 F 01/16/25 15:13 Pulse 81 01/16/25 15:13 BP 128/74 01/16/25 15:13 Pulse Ox 100 01/16/25 15:13 Oxygen Delivery Method Room Air 01/16/25 15:13 BMI result Body Mass Index 33.6 Const General: no acute distress Nutritional Appearance: obese morbidly obese Orientation/consciousness: patient oriented x3 Neuro General: patient oriented x3 Extrem Left lower extremity: knee (Limited ROM due to pain.) Details: tenderness Location: of the patella Details: medially Assessment & Plan Assessment & Plan (1) Knee osteoarthritis: Code(s): M17.10 - Unilateral primary osteoarthritis, unspecified knee Qualifiers: Laterality: left Osteoarthritis type: other secondary Qualified Code(s): M17.5 - Other unilateral secondary osteoarthritis of knee Plan: Acute left knee pain likely secondary to exacerbation of osteoarthritis due to overuse. OA flare-up vs. mild strain. Rest and avoid heavy lifting or prolonged standing. Apply ice to the affected area 15?20 minutes, 2?3 times daily. Continue OTC acetaminophen or NSAIDs as tolerated for pain control. Consider knee brace (declined) or compression sleeve for support. Encourage elevation of leg when resting. Ordered Xray Knee to r/o Fx. Orders: Orders XR knee LT 2V Today M17.5 - Other unilateral secondary osteoarthritis of knee Coding Level of Care Code Est Pt Level 4 (34306) Diagnoses Other secondary osteoarthritis of left knee M17.5 Laterality: left Osteoarthritis type: other secondary Time Spent (min) 20
--- OUTSIDE RECORDS SUMMARY | 2025-01-16 17:19 | XMS_ITS | Clinical Summary ---
Author Organization [facility] Address [address] [place] [address] Phone Care Team Providers Care Bellhop Name Role Phone Darlene Magaña MD Primary Care Provider [phone] Allergies Active Allergy Reactions Criticality Noted Date [...] free lambda light chain is increased. Free Home Lt Chain 3.3 - 19.4 mg/L 6.4 Free Lambda Lt Chain 5.7 - 26.3 mg/L 38.1 (Abnormally H) Free Home Lambda Rat 0.3 - 1.7 0.2 (Abnormally L) 12/21/14 There is a 0.66 g/dl IgM lambda M component in the gamma region. Ref Range 12/21/14 2:54 PM 12/15/13 1:10 PM 10/11/12 12:44 PM Free Home Lt Chain 3.3 - 19.4 mg/L 8.5 5.0 <2.7 (Abnormally L) Free Lambda Lt Chain 5.7 - 26.3 mg/L 32.5 (Abnormally H) 24.1 39.0 (Abnormally H) Free Home Lambda Rat 0.30 - 1.70 0.26 (Abnormally [...] comment see comment see comment Abnormal pattern.... Home FLC (mg/L) Latest Ref Range: 3.3 - 19.4 mg/L 4.4 <2.7 (Abnormally L) 5.0 8.5 8.6 Lambda Free Light Chains (mg/L) Latest Ref Range: 5.7 - 26.3 mg/L 34.1 (Abnormally H) 39.0 (Abnormally H) 24.1 32.5 (Abnormally H) 31.8 (H) Free Home/Lamda Ratio Latest Ref Range: 0.30 - 1.70 [...] serum ([facility], [facility], [facility], [facility], [facility], [facility], [facility]) Result Value Ref Range FREE KAPPA [...] all good news. Resulted Orders SPEP panel ([facility]) Result Value Ref Range Total Protein 7.4 6.0 - 8.3 g/dL IMMUNOGLOBULIN G 618 614 - 1295 mg/dL IgA 101 69 - 309 mg/dL IMMUNOGLOBULIN M 1358 (H) 53 - 334 mg/dL SPEP Abnormal pattern Free light chains, serum ([facility], [facility], [facility], MG, [facility], [facility]) Result Value Ref Range FREE KAPPA [...] tests from 11/22/15. Resulted Orders SPEP panel ([facility]) Result Value Ref Range [...] lambda M component in the gamma region. Home FLC (mg/L): 8.5 (Normal Range = 3.3 to 19.4) Lambda Free Light Chains (mg/L): 32.5 (Normal Range = 5.7 to 26.3): Out of Range Free Home/Lamda Ratio: 0.26 (Normal Range = 0.30 to [...] had a bone densitometry done outside of [facility] approximately 2014. Assessment & Plan (12/02/2020 10:54 [...] neighbor's home. She received a letter from [facility] about 6 months ago warning about depression [...] drainage when she and her returned to [place] from [place] in 07/24. She was doing very well in [place]. In [place] during the hot, humid weather, she had [...] when she and her recently went to [place]. Office Visit 12/15/19 (Dr. You): Aureliano has [...] drainage when she and her returned to [place] from [place] in 07/24. She was doing very well in [place]. In [place] during the hot, humid weather, she had [...] 12/15/2013(Deferred: Patient Decision - , Ordered By: [id number]) Influenza, Unspecified Formulation 12/04/2008 Influenza, whole 12/15/2019 [...] 12/15/2019, 12/02/2019, Additional history exists COVID-19 VACCINE ( season) 2024 06/25/2021, 01/25/2021 PNEUMOCOCCAL VACCINES (50+ years) Completed 01/13/2018, 08/17/2017, 11/22/2015, Additional history exists HEPATITIS A VACCINES Aged Out No long er eligible based on patient's age to complete this topic HIB VACCINES Aged Out No longer eligi ble based on patient's age to complete this topic IPV VACCINES Aged Out No longer eligi ble based on patient's age to complete this topic MENINGOCOCCAL VACCINES (ACWY) Aged Out No longer eligible based on patient's age to complete this topic MENINGOCOCCAL VACCINES (B) Aged Out N o longer eligible based on patient's age to complete this topic Medical Devices Not on file Insurance [facility] MEDICARE PPO BLUE REPLACEMENT [facility] MEDICARE PPO BLUE [place]AC[place] [address] [address] [place] [address] MEDICARE PPO BLUE REPLACEMENT [address] [place] [address] MEDICARE PPO BLUE REPLACEMENT [place] [address] [place] [address] MEDICARE PPO BLUE REPLACEMENT [place] MEDICARE PPO BLUE REPLACEMENT Care Teams Bellhop Relationship Specialty Start Date End Date Darlene Magaña MD [address] [place] [phone] PCP - General Internal Medicine 12/15/13 Additional Source Comments The information contained in this document represents components of the legal health record. It is not the complete legal health record.[facility]
== END 2025-01-16 15:57 | disposition home or self-care (01) ==
PROVIDERS: PCP Internal Medicine; Visit Provider Nurse Practitioner Family
DX: M17.5 Other unilateral secondary osteoarthritis of knee (principal)

== ENCOUNTER 2025-01-16 15:12 | Outpatient (REF) | payer MEDICARE, SELFPAY ==
--- NOTE | ~2025-01-16 | XR_ITS ---
EXAMINATION: XR KNEE, LEFT CLINICAL INFORMATION: M17.5 - Other unilateral secondary osteoarthritis of knee COMPARISON: None available. TECHNIQUE: AP and lateral views of the left knee. FINDINGS: Moderate vascular calcifications are present. There is a joint effusion. There are tricompartmental marginal osteophytes. There is mild narrowing of the medial joint space. XR/XR knee LT 2V IMPRESSION: Mild osteoarthritis with a joint effusion. Electronically signed by: Sanjeev Ivory MD 01/16/2025 04:15 PM NANO BROOKS
== END 2025-01-16 15:13 | disposition home or self-care (01) ==
LOC: HO.HMGCX 15:12
PROVIDERS: PCP Internal Medicine; Visit Provider Nurse Practitioner Family
DX: M17.5 Other unilateral secondary osteoarthritis of knee (principal)
CPT/HCPCS: 73560; 99212

== ENCOUNTER → 2025-01-16 15:58 | Outpatient (BNV) | payer MEDICARE, SELFPAY | PROVIDERS: PCP Internal Medicine; Visit Provider Radiology Diagnostic Radiology | DX: M17.5 Other unilateral secondary osteoarthritis of knee (principal); M25.462 Effusion, left knee | CPT/HCPCS: 73560 ==